=== PATIENT | male | born 1955 | race Caucasian/White ===

== ENCOUNTER 2020-01-14 10:44 | Outpatient (REF) | payer MEDICARE, MEDICAID, SELFPAY ==
--- NOTE | 2020-01-14 10:53 | US_ITS ---
EXAMINATION: NONINVASIVE ASSESSMENT OF THE ARTERIES OF BOTH LOWER EXTREMITIES WITH PVR EXAM AND BILATERAL LOWER EXTREMITY DUPLEX CLINICAL INFORMATION: Bilateral lower extremity arterial insufficiency and atherosclerosis. TECHNIQUE: Ankle pulse volume recordings, ankle pressure measurements and ankle brachial indices were obtained of the lower extremity arterial system bilaterally. Additionally, duplex Doppler techniques were used with wave form analysis and measurement of velocities in the common femoral, profunda femoral, superficial femoral, popliteal and tibial arteries. The study was performed only at rest. COMPARISON: CTA runoff on 12/08/2019. FINDINGS: ANKLE-BRACHIAL INDEX: Right: 1.06. Left: 1.15. (Likely elevated due to vessel noncompressibility.) ANKLE PRESSURES: Right: PT 173, DP 184. Left: PT 200, DP 200. PVR WAVEFORM: Right: normal. Left: normal. DIRECT DUPLEX DOPPLER FINDINGS: RIGHT LEG: Common femoral artery: 118 cm/s, diastolic flow reversal: Yes. Profunda femoris artery: 119 cm/s, diastolic flow reversal: Yes. Superficial femoral artery (proximal): 116 cm/s, diastolic flow reversal: Yes. Superficial femoral artery (mid): 168 cm/s, diastolic flow reversal: Yes. Superficial femoral artery (distal): 101 cm/s, diastolic flow reversal: Yes. Popliteal artery: 35 cm/s, diastolic flow reversal: Yes. Posterior tibial artery: 45cm/s, diastolic flow reversal: Yes. LEFT LEG: Common femoral artery: 170 cm/s, diastolic flow reversal: Yes. Profunda femoris artery: 79 cm/s, diastolic flow reversal: Yes. Superficial femoral artery (proximal): 109 cm/s, diastolic flow reversal: Yes. Superficial femoral artery (mid): 120 cm/s, diastolic flow reversal: Yes. Superficial femoral artery (distal): 92 cm/s, diastolic flow reversal: Yes. Popliteal artery: 34 cm/s, diastolic flow reversal: Yes. Posterior tibial artery: 77cm/s, diastolic flow reversal: Yes. Atherosclerotic plaque is seen throughout the bilateral lower extremity arteries. IMPRESSION: Right leg: GIFTY 1.06. Evidence of mild hemodynamically significant stenosis involving the mid right superficial femoral artery by duplex criteria. Left leg: GIFTY 1.15, however likely artificially elevated due to vessel noncompressibility. Focally elevated velocity within the left common femoral artery consistent with mild hemodynamically significant stenosis. Multiphasic waveforms demonstrated throughout the remainder of the left lower extremity. GIFTY Reference: - >0.97-1.25 = normal - no significant arterial disease. - 0.75-0.96 = mild peripheral arterial disease. - 0.5-0.74 = moderate peripheral arterial disease. - <0.50 = severe peripheral arterial disease.
== END 2020-01-14 10:45 | disposition home or self-care (01) ==
LOC: HO.US 10:44
PROVIDERS: Visit Provider Surgery Vascular Surgery
DX: I73.9 Peripheral vascular disease, unspecified (principal)
CPT/HCPCS: 93923; 93925

== ENCOUNTER 2020-02-03 10:24 | Outpatient (REF) | payer MEDICARE, MEDICAID, SELFPAY | END 2020-02-03 10:25 | disposition home or self-care (01) | LOC: HO.LAB 10:24 | PROVIDERS: Visit Provider Internal Medicine | DX: Z20.828 Contact with and (suspected) exposure to other viral communicable diseases (principal) | CPT/HCPCS: 87635 ==

== ENCOUNTER → 2020-03-11 13:00 | Outpatient (BNVA) | payer MEDICARE, MEDICAID, SELFPAY | PROVIDERS: PCP Nurse Practitioner Family; Visit Provider Surgery Vascular Surgery | DX: I73.9 Peripheral vascular disease, unspecified (principal) | CPT/HCPCS: 99212 ==

== ENCOUNTER → 2021-01-04 09:17 | Outpatient (REF) | payer MEDICARE, MEDICAID, SELFPAY ==
--- NOTE | ~2021-01-04 | NM_ITS ---
Myocardial perfusion study Indication: Atherosclerotic heart disease to evaluate for myocardial ischemia Technique: The patient was brought in for a Lexiscan perfusion study on 01/04/2021. Patient performed low-level exercise and was injected 0.4 mg of Lexiscan intravenously. Within a minute of injection, 25 mCi of sestamibi was given intravenously. Images were obtained using the SPECT gamma camera interlaced with the gating device. Images were obtained in supine position. Resting perfusion study was performed on 01/06/2021. Patient was administered 25 mCi of sestamibi intravenously at rest. Images were then obtained in supine position. Images obtained with and without CT attenuation. Total DLP 80 mGy-cm. Images were processed with the software and compared side to side in short axis, horizontal long axis and vertical long axis views. Findings: Both stress and rest as well as attenuated and is suboptimal due to intense subdiaphragmatic uptake interfering with inferior wall uptake. The stress perfusion study showed nonattenuated images show large area of absent uptake in the basal and mid inferior wall with severely reduced uptake in the inferoapical and apical wall of the LV myocardium is also absent uptake in the inferolateral wall of the LV myocardium lateral wall of the LV myocardium and moderately to severely reduced uptake in the inferolateral wall of the LV myocardium. Anterior wall is normally perfused. There is also mildly reduced uptake septum of the LV myocardium. Attenuated corrected images are suboptimal. The gated study shows reduced LV systolic function with calculated LVEF of 30%. LV cavity is moderately dilated size. The gated study shows absent wall thickening and contraction of inferior and inferolateral wall as well as reduced contractility anterolateral wall segments. Resting study shows improved uptake in the lateral and inferolateral wall of the LV myocardium. Absent uptake in the inferior and inferolateral wall. Gating at rest reveals inferior and inferolateral wall motion abnormality with ejection fraction at 37%. The findings are consistent with large area of possible infarct of inferior and inferolateral wall with nontransmural infarct of the septal wall without ischemia. There is moderate to large area of the LV as well as inferolateral wall of the LV myocardium. NM/NM zeb perf SPECT rest & str Impression: 1. Myocardial perfusion imaging study shows inferior and inferolateral transmural infarct. Lateral and anterolateral ischemia 2. Gated LVEF is 30% with stress and 37% with stress 3. Transient ischemic dilatation present EKG is nondiagnostic for ischemia
--- NOTE | 2021-01-04 09:30 | CA_ITS ---
Acquisition Time: 2021-01-04 09:30:47 Total Exercise Time: 00:02:00 Test Indications: CP Medications: SEE CHART Protocol: LEXISCAN Max HR: 089 BPM 57% of Pred: 155 BPM Max BP: 132/084 mmHG Max Work Load: 1.0 METS Pharmacological stress test with Lexiscan injection, while sitting and kicking his legs, without anginal symptoms, with isolated PACs and PVCs, with normotensive response to injection, with nondiagnostic EKG for ischemia. In recovery he reported lightheadedness that was treated with Aminophylline 75mg IVP to reverse Lexiscan with resolution of symptom. Nuclear images pending. Test reviewed with Dr Mancini. Referred By: Brian Colby Overread By: JUICE PARADA
== END ==
LOC: HO.CARD 09:17
PROVIDERS: Visit Provider Internal Medicine Cardiovascular Disease
DX: I25.10 Atherosclerotic heart disease of native coronary artery without angina pectoris (principal)
CPT/HCPCS: 78452; 93017; A9500; J0280; J2785

== ENCOUNTER 2021-10-26 10:42 | Emergency (ER) | payer MEDICARE, MEDICAID, SELFPAY | END 2021-10-26 13:45 | disposition left against medical advice (07) | PROVIDERS: Emergency Provider Emergency Medicine; PCP Nurse Practitioner Family | DX: R79.9 Abnormal finding of blood chemistry, unspecified (principal) ==

== ENCOUNTER 2021-10-26 20:49 | Inpatient (IN) | payer OTHER, MEDICAID, SELFPAY ==
--- NOTE | ~2021-10-26 | CT_ITS ---
EXAMINATION: CT ABDOMEN AND PELVIS WITHOUT CONTRAST CLINICAL INFORMATION: Evaluate for retroperitoneal hematoma. COMPARISON: CT A abdomen 12/08/2019 TECHNIQUE: Multidetector volumetric imaging was performed from the superior aspect of the liver through the pubic symphysis. Sagittal and coronal reformatted images were obtained on the technologist's workstation. This CT examination was performed using dose optimization techniques as appropriate, variously including the following: *Automated exposure control *Adjustment of mA and/or kV according to patient size (this includes techniques or standardized protocols for targeted exams where dose is matched to indication/reason for exam; i.e. extremities or head) *Use of iterative reconstruction technique DLP: 412 mGy-cm FINDINGS: LUNG BASES: There is dependent bibasilar atelectasis. The heart size is normal. There are coronary artery calcifications present. LIVER, GALLBLADDER, AND BILIARY TREE: The liver is normal in size, shape, and attenuation. No focal hepatic lesion or biliary ductal dilatation is present. The gallbladder has been surgically removed. PANCREAS: Unremarkable. SPLEEN: The spleen is unremarkable except for punctate calcification.. ADRENAL GLANDS: Unremarkable. KIDNEYS AND URETERS: The kidneys are normal in size, shape, and attenuation. No hydronephrosis, hydroureter, or calculi seen. There is mild bilateral perinephric stranding. There are bilateral vascular calcifications. No retroperitoneal mass or adenopathy or hematoma seen. BLADDER: There is mild bladder distention secondary to prostate enlargement encroaching onto the base of the bladder. GASTROINTESTINAL TRACT: There is diffuse colonic diverticulosis with scattered stool and gas without distention or diverticulitis. The small bowel loops are normal caliber. Appendix is not visualized. No free air or free fluid seen. ABDOMINAL WALL: No significant hernia is appreciated. LYMPH NODES: Normal. VASCULAR: There are extensive atherosclerotic calcification of abdominal aorta and common iliac arteries without aneurysmal dilatation. PELVIC VISCERA: The prostate gland is enlarged with peripheral and central calcification. No abnormal pelvic or inguinal lymph nodes seen.. OSSEOUS STRUCTURES: There are degenerative disc changes with vacuum disc phenomena and spondylosis L4-L5 and L5/S1 disc levels. No aggressive lytic or sclerotic process seen. Mildly indistinct changes T10-T11 and T11-T12 disc levels with ventral spondylosis. CT/CT abdomen pelvis wo con IMPRESSION: No retroperitoneal or inguinal hematoma. Diffuse colonic diverticulosis without diverticulitis. Previous cholecystectomy and bilateral perinephric stranding but no radiopaque renal calculi or hydronephrosis. Mild prostate enlargement with extension into the base of bladder and mild bladder distention. Fleischner guidelines were followed.
[2021-10-26 21:24] VITALS: BP 119/72; PULSE 63; RESP 18; TEMP 36.6; O2SAT 100; BMI 23.0
--- NOTE | 2021-10-26 21:28 | ECG_ITS ---
Test Reason : DYSPNEA Blood Pressure : / mmHG Vent. Rate : 062 BPM Atrial Rate : 062 BPM P-R Int : 168 ms QRS Dur : 122 ms QT Int : 410 ms P-R-T Axes : 056 -11 -80 degrees QTc Int : 416 ms Normal sinus rhythm Left ventricular hypertrophy with QRS widening and repolarization abnormality ( Abdi product ) Inferior infarct (cited on or before 30-JUL-2007) Abnormal ECG When compared with ECG of 16-MAY-2018 14:43, QT has shortened Referred By: Generic ED Physician Electronically Signed By:Brien Charles
[2021-10-26 21:45] LABS: Eosinophils Absolute Auto 0.1 X10*3/uL (0.0-0.4); Imm Gran Abs Auto 0.01 X10*3/uL (0.00-0.03); Imm Gran Pct Auto 0.2 % (0.0-0.4); MANUAL DIFF FLAG SCAN; SCAN SMEAR FLAG 1
[2021-10-26 21:47] LABS: Basophils Absolute Auto 0.1 X10*3/uL (0.0-0.2); Basophils Percent Auto 1.2 % (0-2); Eosinophils Percent Auto 2.5 % (0-4); Hematocrit 21.2 % (42.0-52.0); Lymphocytes Percent Auto 38.2 % (20-40); Mean Corpuscular HGB Conc 26.9 g/dl (31.0-36.0); Mean Corpuscular Hemoglobin 17.1 pg (27.0-33.0); Monocytes Absolute Auto 0.8 X10*3/uL (0.1-1.2); Monocytes Percent Auto 14.6 % (2-11); Neutrophils Absolute Auto 2.3 x10*3/uL (2.0-8.3); Neutrophils Percent Auto 43.3 % (45-73); PLT CLUMP 1; Red Blood Count 3.34 X10*6/uL (4.60-5.80)
[2021-10-26 21:48] LABS: Mean Corpuscular Volume 63.5 fL (80.0-98.0); PLT ABN DIST 1
[2021-10-26 21:49] LABS: White Blood Count 5.2 X10*3/uL (4.8-10.8)
[2021-10-26 21:52] LABS: Hemoglobin 5.7 g/dl (14.0-18.0)
[2021-10-26 21:58] VITALS: BP 127/60; PULSE 68; RESP 16; O2SAT 100
[2021-10-26 22:04] LABS: SLIDE REVIEW VERIFIED
[2021-10-26 22:08] LABS: Alanine Aminotransferase 11 U/L (0-40); Albumin Level 4.1 g/dL (3.5-5.0); Alkaline Phosphatase 72 U/L (39-117); Anion Gap 9 (12-20); Aspartate Amino Transferase 18 U/L (5-37); Bilirubin Total 0.5 mg/dL (0.0-1.0); Blood Urea Nitrogen 10 mg/dL (9-16); Calcium 8.7 mg/dL (8.4-10.2); Carbon Dioxide 26 mmol/L (22-29); Chloride 104 mmol/L (96-108); Creatinine Clr Calc Pharmacy 72.1; Estimated Glomerular Filt Rate > 60; Glucose Random 103 mg/dL (60-115); Potassium 3.9 mmol/L (3.3-5.1); Sodium 135 mmol/L (135-145); Total Protein 6.3 g/dL (6.5-8.0); Troponin-I High Sensitivity 8.9 ng/L (<3.5-35.0)
--- NOTE | 2021-10-26 22:21 | ED.RECABL ---
HPI - Recheck/Abnormal Lab/Rx General Chief Complaint: Recheck/Abnormal Lab/Rx Stated Complaint: low hemoglobin? Time Seen by Provider: 10/26/21 22:08 Source: patient Mode of arrival: ambulatory Limitations: no limitations History of Present Illness HPI narrative: Patient comes to the emergency room complaining fatigue, shortness of breath, exercise intolerance for about a month. Patient states that he has had 3 heart attacks in the past, he was supposed to go to a cardiac catheterization, when he did his blood work for the workup, he was told that his hemoglobin is low and needed to come to the hospital. Patient denies any chest pain or shortness of breath. Patient denies hematuria or black stool. Patient takes clopidogrel and aspirin Related Data Home Medications Medication Instructions Recorded Confirmed No Known Home Meds 03/11/20 03/11/20 Allergies Allergy/AdvReac Type Severity Reaction Status Date / Time No Known Allergies Allergy Unverified 12/25/19 17:38 [No Known Allergies*] Review of Systems Review of Systems: Constitutional : No Weight loss, No Fever, No Chills, No Night Sweats, complain of chronic fatigue ENT/Mouth : No Hearing loss, No Ear Pain, No Nasal Congestion, No Sinus Pain, No Hoarseness, No sore throat, No Rhinorrhea, No Swallowing Difficulty Eyes: No Eye Pain, No Swelling, No Redness, No Foreign Body, No Discharge, No Vision Changes Cardiovascular : No Chest Pain, complaining of shortness of breath with exertion, orthopnea or palpitations Respiratory : No Cough, No Sputum, No Wheezing, No Smoke Exposure, No Dyspnea Gastrointestinal : No Nausea, No Vomiting, No Diarrhea, No Constipation, No abdominal Pain, No Hematochezia, No Melena Genitourinary : no irregular bleeding, No Dysuria, No Urinary Frequency, No Hematuria, No Urinary Incontinence, No Urgency, No Flank Pain, No Urinary Flow Changes, No Hesitancy Musculoskeletal : No joint pain, No Myalgias, No Joint Swelling Skin : No Skin Lesions, No rash Neuro : No Weakness, No Numbness, No Paresthesias, No Loss of Consciousness, No Dizziness, No Headache Psych : No Anxiety/Panic, No Depression, No SI/HI/AH/VH, No Social Issues, Heme/Lymph: No Bruising, No Bleeding,No Lymphadenopathy Endocrine : No Polyuria, No Polydipsia, No Temperature Intolerance PMF Past Medical History Medical History (Updated 10/26/21 @ 23:55 by Breanne Astorga MD) Coronary artery disease Hypertension Hypothyroidism NSTEMI (non-ST elevated myocardial infarction) Oropharyngeal cancer Surgical History H/O heart surgery History of hernia repair Hx laparoscopic cholecystectomy Patient on combined chemotherapy and radiation Family History Family History Father No problems noted. Mother No problems noted. Daughter No problems noted. Son No problems noted. Son No problems noted. Brother No problems noted. Sister No problems noted. Sister No problems noted. Son No problems noted. Social History Social History Cigarettes Per Day: 6 Advance Directives: No Physical Exam Vital Signs: Vital Signs: Last Vital Signs Temp 97.6 F 10/26/21 23:46 Pulse 68 10/26/21 23:46 Resp 16 10/26/21 23:46 BP 114/54 L 10/26/21 23:46 Pulse Ox 97 10/26/21 23:46 O2 Del Method 10/26/21 23:46 BMI result Body Mass Index 23.0 Const: Other: Appearance: Alert. Oriented X3. No acute distress. Eyes: Pupils equal, round and reactive to light. ENT: Pharynx normal. Missing half of his tongue Neck: Normal inspection. Neck supple. No lymph nodes noted. No crepitus CVS: Normal heart rate and rhythm. Pulses normal. Normal S1 and S2 Respiratory: No respiratory distress. Breath sounds normal. No Wheezing. No rales Abdomen: Soft and nontender. No rigidity. No distention. Skin: Skin warm and dry. Diffusely pale Extremities: No lower extremity edema. No Lacerations. No Rash Neuro: Oriented X 3. No motor deficit. No sensory deficit. Moving all extremities. No slurred speech. CN 2 through 12 grossly intact Psych: calm, cooperative, normal affect Course Course Course Narrative: I discussed with the patient that his hemoglobin is low, he will likely need 3 units of blood. I discussed the benefits versus risks of blood transfusion, patient and his are agreeable to the blood transfusion. Patient will be receiving 3 units of blood. Guiac stool negative. MDM - Recheck/Abnormal Lab/Rx Lab Data Result diagrams: 10/26/21 21:39 10/26/21 21:39 Labs: Lab Results 10/26/21 10/26/21 10/26/21 Range/Units 21:39 21:39 21:39 WBC 5.2 (4.8-10.8) X10*3/uL RBC 3.34 L (4.60-5.80) X10*6/uL Hgb 5.7 L* (14.0-18.0) g/dl Hct 21.2 L (42.0-52.0) % MCV 63.5 L (80.0-98.0) fL MCH 17.1 L (27.0-33.0) pg MCHC 26.9 L (31.0-36.0) g/dl RDW 22.0 H (11.0-16.0) % Plt Count DOCUMENT CONTROL CLERK MPV DOCUMENT CONTROL CLERK Immature Gran % (Auto) 0.2 (0.0-0.4) % Neut % (Auto) 43.3 L (45-73) % Lymph % (Auto) 38.2 (20-40) % [place] % (Auto) 14.6 H (2-11) % Eos % (Auto) 2.5 (0-4) % Baso % (Auto) 1.2 (0-2) % Lymph # (Auto) 2.0 (1.2-4.9) X10*3/uL [place] # (Auto) 0.8 (0.1-1.2) X10*3/uL Eos # (Auto) 0.1 (0.0-0.4) X10*3/uL Baso # (Auto) 0.1 (0.0-0.2) X10*3/uL Abs Immat Gran (auto) 0.01 (0.00-0.03) X10*3/uL Absolute Neuts (auto) 2.3 (2.0-8.3) x10*3/uL Absolute Nucleated RBC 0.000 (0.0-0.012) X10*3/uL Nucleated RBC % (auto) 0.0 (0.0-0.2) /100WBC Smear Tech's Comments VERIFIED Sodium 135 (135-145) mmol/L Potassium 3.9 (3.3-5.1) mmol/L Chloride 104 (96-108) mmol/L Carbon Dioxide 26 (22-29) mmol/L Anion Gap 9 L (12-20) BUN 10 (9-16) mg/dL Creatinine 0.81 (0.5-1.4) mg/dL Estim Creat Clear Calc 72.1 Estimated GFR > 60 Random Glucose 103 (60-115) mg/dL Calcium 8.7 (8.4-10.2) mg/dL Total Bilirubin 0.5 (0.0-1.0) mg/dL AST 18 (5-37) U/L ALT 11 (0-40) U/L Alkaline Phosphatase 72 (39-117) U/L Troponin I High Sens 8.9 (<3.5-35.0) ng/L Total Protein 6.3 L (6.5-8.0) g/dL Albumin 4.1 (3.5-5.0) g/dL Stool Occult Blood (NEGATIVE) COVID-19 (TERI) (Negative) COVID-19 Clin Com Blood Type Antibody Screen Crossmatch 10/26/21 10/26/21 10/26/21 Range/Units 22:25 22:25 22:44 WBC (4.8-10.8) X10*3/uL RBC (4.60-5.80) X10*6/uL Hgb (14.0-18.0) g/dl Hct (42.0-52.0) % MCV (80.0-98.0) fL MCH (27.0-33.0) pg MCHC (31.0-36.0) g/dl RDW (11.0-16.0) % Plt Count MPV Immature Gran % (Auto) (0.0-0.4) % Neut % (Auto) (45-73) % Lymph % (Auto) (20-40) % [place] % (Auto) (2-11) % Eos % (Auto) (0-4) % Baso % (Auto) (0-2) % Lymph # (Auto) (1.2-4.9) X10*3/uL [place] # (Auto) (0.1-1.2) X10*3/uL Eos # (Auto) (0.0-0.4) X10*3/uL Baso # (Auto) (0.0-0.2) X10*3/uL Abs Immat Gran (auto) (0.00-0.03) X10*3/uL Absolute Neuts (auto) (2.0-8.3) x10*3/uL Absolute Nucleated RBC (0.0-0.012) X10*3/uL Nucleated RBC % (auto) (0.0-0.2) /100WBC Smear Tech's Comments Sodium (135-145) mmol/L Potassium (3.3-5.1) mmol/L Chloride (96-108) mmol/L Carbon Dioxide (22-29) mmol/L Anion Gap (12-20) BUN (9-16) mg/dL Creatinine (0.5-1.4) mg/dL Estim Creat Clear Calc Estimated GFR Random Glucose (60-115) mg/dL Calcium (8.4-10.2) mg/dL Total Bilirubin (0.0-1.0) mg/dL AST (5-37) U/L ALT (0-40) U/L Alkaline Phosphatase (39-117) U/L Troponin I High Sens (<3.5-35.0) ng/L Total Protein (6.5-8.0) g/dL Albumin (3.5-5.0) g/dL Stool Occult Blood NEGATIVE (NEGATIVE) COVID-19 (TERI) Negative (Negative) COVID-19 Clin Com See Note Blood Type O Negative Antibody Screen NEGATIVE Crossmatch See Detail Critical Care Time Critical Care Time Critical Care Time: Yes Total Critical Care Time: 45 Attestation: I have personally provided critical care time. Time includes review of lab data, radiology results, discussion with consultants, and monitoring for potential decompensation. Intervention performed as documented. Discharge Plan Discharge Clinical Impression: Anemia Patient Disposition: Admitted As Inpatient
[2021-10-26 22:34] LABS: OBS1 NEGATIVE (NEGATIVE)
[2021-10-26 22:35] LABS: OBS Int Ctl Valid YES
[2021-10-26 22:54] LABS: COVID-19 Test Negative (Negative); IDNOW Serial# 55D5AD1C
[2021-10-26 23:46] VITALS: BP 114/54; PULSE 68; RESP 16; TEMP 36.4; O2SAT 97
[2021-10-27] VITALS (8 sets, daily range): BP systolic 114–159; BP diastolic 54–90; PULSE 66–81; RESP 12–20; TEMP 36.6–37.2; O2SAT 98
[2021-10-27 00:36] LABS: Immature Retic Fraction 19.9 % (2.3-13.4); Retic HGB Equivalent 17.7 pg (30.0-35.0); Reticulocyte Percent 1.3 % (0.5-1.8); Reticulocytes Absolute 0.044 X10*6/uL (0.026-0.095)
[2021-10-27] MEDS: Nicotine 21 MG PATCH.TD24 TRANSDERMA (00:47)
[2021-10-27 00:58] LABS: Iron 15 mcg/dL (45-160); Percent Iron Saturation 3 % (15-50); Total Iron Binding Capacity 441 mcg/dL (228-428); Unsaturated Iron Binding 426 ug/dL
[2021-10-27 01:19] LABS: Ferritin 5 ng/mL (20-250)
[2021-10-27 01:30] LABS: Vitamin B12 420 pg/mL (200-900)
--- NOTE | 2021-10-27 02:05 | P.HPHOSP_ITS ---
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 Patient reports that for past 1 month he has been having shortness of breath and dyspnea on exertion. Denies any chest pain or palpitations. Reports he feel dizzy or lightheaded. Denies any falls or trauma. Denies any numbness tingling or focal weakness. Patient denies any blood in the stool. Denies any nausea vomiting. Mentioned that he has been following with his sweatband shaper and has plans for outpatient elective cardiac catheterization. But on his routine blood work he was noted to have lobe hemoglobin subsequently asked him to go to the ER for further evaluation. Patient denies any fever chills cough. Denies any GI symptoms. Review of all other systems is negative except mentioned above ER course: Per ER team patient's exam was benign; stool guaiac was negative; hemoglobin noted to be 5.7. Patient being transfused 3 units of blood. Admitted to the hospital for further management. [facility] Medical History (Updated 10/27/21 @ 10:55 by Brien Charles MD) Coronary artery disease Hypertension Hypothyroidism NSTEMI (non-ST elevated myocardial infarction) Oropharyngeal cancer Family History Father No problems noted. Mother No problems noted. Daughter No problems noted. Son No problems noted. Son No problems noted. Brother No problems noted. Sister No problems noted. Sister No problems noted. Son No problems noted. Surgical History H/O heart surgery History of hernia repair Hx laparoscopic cholecystectomy Patient on combined chemotherapy and radiation Social History Alcohol intake: current Patient Tobacco Use Status: Tobacco use Unknown Cigarettes Per Day: 6 Meds Allergies Allergy/AdvReac Type Severity Reaction Status Date / Time No Known Allergies Allergy Unverified 12/25/19 17:38 [No Known Allergies*] Active Medications: Current Medications Acetaminophen (Acetaminophen 325 Mg Tablet) 650 mg PO Q6H PRN PRN Reason: Pain, Mild (Pain Scale 1-3) Melatonin (Melatonin 3 Mg Tablet) 6 mg PO BEDTIME PRN PRN Reason: Insomnia Senna (Sennosides 8.6 Mg Tablet) 17.2 mg PO BEDTIME PRN PRN Reason: Constipation Sodium Chloride (0.9 % Sodium Chloride Flush 3 Ml Syringe) 3 ml IVFLUSH QSHIFT FABI Last Admin: 10/27/21 00:34 Dose: Not Given Home Medications Medication Instructions Recorded Confirmed Last Taken Type aspirin 81 mg tablet,delayed 1 tab PO DAILY 10/27/21 10/27/21 Unknown History release atorvastatin 40 mg tablet 1 tab PO DAILY 10/27/21 10/27/21 Unknown History carvedilol 3.125 mg tablet 1 tab PO BID 10/27/21 10/27/21 Unknown History clopidogrel 75 mg tablet 1 tab PO QAM 10/27/21 10/27/21 Unknown History furosemide 20 mg tablet 1 tab PO QAM 10/27/21 10/27/21 Unknown History isosorbide mononitrate 30 mg 1 tab PO QAM 10/27/21 10/27/21 Unknown History tablet,extended release 24 hr levothyroxine 75 mcg tablet 1 tab PO DAILY 10/27/21 10/27/21 Unknown History lisinopril 10 mg tablet 1 tab PO DAILY 10/27/21 10/27/21 Unknown History oxycodone 15 mg tablet 1 tab PO Q6H PRN pain 10/27/21 10/27/21 Unknown History Physical Exam Vital Signs and Narrative: Vital Signs: Last Vital Signs Temp 98.2 F 10/27/21 00:38 Pulse 81 10/27/21 00:38 Resp 12 10/27/21 00:38 BP 126/75 10/27/21 00:38 Pulse Ox 97 10/26/21 23:46 O2 Del Method 10/26/21 23:46 BMI result Body Mass Index 23.0 Gen: Appears be in no acute distress HEENT: NCAT, Moist mucosa. Pulmonary: Vesicular breath sounds, fair air entry CVS: Normal S1-S2 Abdomen: BS+, Soft, Nontender Extremities: Warm well perfused Neuro: Alert and awake. Results Labs CBC and Chem 7: 10/27/21 03:33 10/27/21 03:33 Labs: Laboratory Results - last 24 hr 10/26/21 10/26/21 10/26/21 21:39 21:39 21:39 MCV 63.5 L MCH 17.1 L MCHC 26.9 L RDW 22.0 H Plt Count RV REPAIR TECHNICIAN MPV RV REPAIR TECHNICIAN Immature Gran % (Auto) 0.2 Neut % (Auto) 43.3 L Lymph % (Auto) 38.2 [place] % (Auto) 14.6 H Eos % (Auto) 2.5 Baso % (Auto) 1.2 Lymph # (Auto) 2.0 [place] # (Auto) 0.8 Eos # (Auto) 0.1 Baso # (Auto) 0.1 Abs Immat Gran (auto) 0.01 Absolute Neuts (auto) 2.3 Absolute Nucleated RBC 0.000 Nucleated RBC % (auto) 0.0 Smear Tech's Comments VERIFIED Absolute Retic Percent Retic Immature Retic Fraction Retic Hgb Equivalent Anion Gap 9 L Estim Creat Clear Calc 72.1 Estimated GFR > 60 Random Glucose 103 Calcium 8.7 Iron TIBC % Saturation Unsat Iron Binding Ferritin Total Bilirubin 0.5 AST 18 ALT 11 Alkaline Phosphatase 72 Troponin I High Sens 8.9 Total Protein 6.3 L Albumin 4.1 Vitamin B12 Folate Stool Occult Blood COVID-19 (TERI) COVID-19 Clin Com Blood Type Antibody Screen Crossmatch 10/26/21 10/26/21 10/26/21 22:25 22:25 22:44 MCV MCH MCHC RDW Plt Count MPV Immature Gran % (Auto) Neut % (Auto) Lymph % (Auto) [place] % (Auto) Eos % (Auto) Baso % (Auto) Lymph # (Auto) [place] # (Auto) Eos # (Auto) Baso # (Auto) Abs Immat Gran (auto) Absolute Neuts (auto) Absolute Nucleated RBC Nucleated RBC % (auto) Smear Tech's Comments Absolute Retic Percent Retic Immature Retic Fraction Retic Hgb Equivalent Anion Gap Estim Creat Clear Calc Estimated GFR Random Glucose Calcium Iron TIBC % Saturation Unsat Iron Binding Ferritin Total Bilirubin AST ALT Alkaline Phosphatase Troponin I High Sens Total Protein Albumin Vitamin B12 Folate Stool Occult Blood NEGATIVE COVID-19 (TERI) Negative COVID-19 Clin Com See Note Blood Type O Negative Antibody Screen NEGATIVE Crossmatch See Detail 10/27/21 10/27/21 10/27/21 00:11 00:11 00:11 MCV MCH MCHC RDW Plt Count MPV Immature Gran % (Auto) Neut % (Auto) Lymph % (Auto) [place] % (Auto) Eos % (Auto) Baso % (Auto) Lymph # (Auto) [place] # (Auto) Eos # (Auto) Baso # (Auto) Abs Immat Gran (auto) Absolute Neuts (auto) Absolute Nucleated RBC Nucleated RBC % (auto) Smear Tech's Comments Absolute Retic 0.044 Percent Retic 1.3 Immature Retic Fraction 19.9 H Retic Hgb Equivalent 17.7 L Anion Gap Estim Creat Clear Calc Estimated GFR Random Glucose Calcium Iron 15 L TIBC 441 H % Saturation 3 L Unsat Iron Binding 426 Ferritin 5 L Total Bilirubin AST ALT Alkaline Phosphatase Troponin I High Sens Total Protein Albumin Vitamin B12 420 Folate 10.0 Stool Occult Blood COVID-19 (TERI) COVID-19 Clin Com Blood Type Antibody Screen Crossmatch Assessment and Plan (1) Anemia: Status: Acute Plan 66-year-old male with a past medical history of hypertension, hyperlipidemia, CAD, history of NSTEMI, 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 Noted to have anemia. Admitted for further management. Anemia: Patient's hemoglobin noted to be 5.7 on presentation. Patient has prior hemoglobin was 13.7 in November 2019. Patient denies any signs of bleeding Stool guaiac was negative Noted to be microcytic. Will obtain iron panel, folate, B12. Patient being transfused 2 units of blood. Hematology-Oncology follow-up Will also obtain CT abdomen to rule out any retroperitoneal hemorrhage. Shortness of breath/dyspnea on exertion: Patient denies any chest pain. EKG nonischemic. Likely in the setting of anemia. Patient follows with Cardiology, planned for elective cardiac catheterization. History of hypertension/hyperlipidemia/CAD: Continue home aspirin, Plavix, statin, Imdur, Lasix, carvedilol. History of hypothyroidism: Continue home levothyroxine DVT prophylaxis: SCD boots Code status: Full code Quality Stroke Does the patient have a stroke diagnosis?: No VTE Prior VTE?: No VTE Risk Level:: Medical - moderate - high VTE Device Contraindication: N/A - Device Ordered VTE Drug Contraindication: Treatment Not Indicated
[2021-10-27 04:08] LABS: MANUAL DIFF FLAG NO
[2021-10-27 04:10] LABS: Basophils Absolute Auto 0.1 X10*3/uL (0.0-0.2); Basophils Percent Auto 1.1 % (0-2); Eosinophils Absolute Auto 0.1 X10*3/uL (0.0-0.4); Eosinophils Percent Auto 1.4 % (0-4); Hematocrit 27.2 % (42.0-52.0); Hemoglobin 7.7 g/dl (14.0-18.0); Imm Gran Abs Auto 0.03 X10*3/uL (0.00-0.03); Imm Gran Pct Auto 0.4 % (0.0-0.4); Lymphocytes Absolute Auto 1.3 X10*3/uL (1.2-4.9); Lymphocytes Percent Auto 18.1 % (20-40); Mean Corpuscular HGB Conc 28.3 g/dl (31.0-36.0); Mean Corpuscular Hemoglobin 18.8 pg (27.0-33.0); Mean Corpuscular Volume 66.3 fL (80.0-98.0); Monocytes Absolute Auto 0.7 X10*3/uL (0.1-1.2); Monocytes Percent Auto 10.3 % (2-11); Neutrophils Absolute Auto 4.8 x10*3/uL (2.0-8.3); Neutrophils Percent Auto 68.7 % (45-73); Platelet Count 181 X10*3/uL (160-400); Red Cell Distribution Width 25.3 % (11.0-16.0)
--- NOTE | 2021-10-27 04:16 | PC.NURSE ---
I assumed nursing care of Rock upon his arrival to bed 2. He arrived for evaluation of shortness of breath. Rock has remained alert, oriented x 3, primarily azeri speaking with the ability to understand and speak a small amount of [place]. He makes eye contact with RN and understands how to use call avendano. Respirations are non-labored, RR 16-20, room air sat's are 95% or better and he is able to speak in full sentences without difficulty. He complains of occasional bouts of nausea, no vomiting. He has taken PO fluids without difficulty. he has voided into bedside urinal independently and without difficulty. Stool occult performed by MD Gauri was negative per lab. SR on bedside monitor without ectopy. Rock has been receiving PRBC's due to critically low hemoglobin. He is aware that he is TBADM and is awaiting a bed assignment. We will continue to monitor Rock.
[2021-10-27 04:37] LABS: Anion Gap 9 (12-20); Blood Urea Nitrogen 8 mg/dL (9-16); Calcium 8.6 mg/dL (8.4-10.2); Carbon Dioxide 24 mmol/L (22-29); Chloride 108 mmol/L (96-108); Creatinine Clr Calc Pharmacy 81.2; Estimated Glomerular Filt Rate > 60; Glucose Random 85 mg/dL (60-115); Sodium 137 mmol/L (135-145)
[2021-10-27 04:58] LABS: Appearance Urine CLEAR; Color Urine STRAW; Glucose Urine UA NEG (NEG); Leukocyte Esterase Urine NEG (NEG); Nitrite Urine NEG (NEG); PH 7.5 (5.0-8.0); Urine Blood NEG (NEG); Urine Ketones NEG (NEG); Urine Protein NEG (NEG-TRACE)
--- NOTE | 2021-10-27 07:10 | PHA.MEDREC ---
Pharmacy Consult ? Medication Reconciliation Pharmacy has completed the medication reconciliation. Med rec done by nursing reviewed by pharmacy
[2021-10-27] MEDS: 0.9 % Sodium Chloride Flush 3 ML SYRINGE IVFLUSH (07:56)
--- NOTE | 2021-10-27 10:53 | P.CONCA_ITS ---
History of Present Illness History of Present Illness Date of Service: 10/27/21 Requesting physician: Nitin Ashton Chief complaint: Anemia, abnormal stress test Narrative: 66-year-old gentleman with known history of previous myocardial infarction when he was in [place] many years ago. He is reporting 3 heart attacks in the past. 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 Been experiencing shortness of breath and underwent stress test which showed inferior infarct and lateral and anterolateral ischemia. The stress test was performed in December 2020. He follows up with Dr. Colby. Apparently a cardiac catheterization was being planned he underwent blood workup which showed significant anemia and was advised to come to the hospital. He is denying any black stools, blood in his stool or urine otherwise. He is saying he has been short of breath with exertion. Denying any significant chest discomfort. He has been transfused at this stage. [facility] Past Medical History Medical History (Updated 10/27/21 @ 10:55 by Brien Charles MD) Coronary artery disease Hypertension Hypothyroidism NSTEMI (non-ST elevated myocardial infarction) Oropharyngeal cancer Family History Family History Father No problems noted. Mother No problems noted. Daughter No problems noted. Son No problems noted. Son No problems noted. Brother No problems noted. Sister No problems noted. Sister No problems noted. Son No problems noted. Surgical History Surgical History H/O heart surgery History of hernia repair Hx laparoscopic cholecystectomy Patient on combined chemotherapy and radiation Social History Social History Alcohol intake: current Patient Tobacco Use Status: Tobacco use Unknown Cigarettes Per Day: 6 Use of substances other than those prescribed or required for medical reasons: No Advance Directives: No Meds Allergies Allergy/AdvReac Type Severity Reaction Status Date / Time No Known Allergies Allergy Unverified 12/25/19 17:38 [No Known Allergies*] Active Medications: Current Medications Acetaminophen (Acetaminophen 325 Mg Tablet) 650 mg PO Q6H PRN PRN Reason: Pain, Mild (Pain Scale 1-3) Al Hydroxide/Mg Hydroxide (Magnesium Hydrox/Alum Hydrox 30 Ml Oral.Susp) 30 ml PO Q6H PRN PRN Reason: Dyspepsia Atorvastatin Calcium (Atorvastatin Calcium 40 Mg Tablet) 40 mg PO BEDTIME FABI Carvedilol (Carvedilol 3.125 Mg Tablet) 3.125 mg PO BID FABI; Protocol Furosemide (Furosemide 20 Mg Tablet) 20 mg PO DAILY FABI; Protocol Isosorbide Mononitrate (Isosorbide Mononitrate 30 Mg Tab.Er.24h) 30 mg PO DAILY FABI; Protocol Levothyroxine Sodium (Levothyroxine Sodium 75 Mcg Tablet) 75 mcg PO DAILY@0600 [facility] Melatonin (Melatonin 3 Mg Tablet) 6 mg PO BEDTIME PRN PRN Reason: Insomnia Omeprazole (Omeprazole 20 Mg Capsule.Dr) 20 mg PO BID@0630,1630 [facility] Senna (Sennosides 8.6 Mg Tablet) 17.2 mg PO BEDTIME PRN PRN Reason: Constipation Sodium Chloride (0.9 % Sodium Chloride Flush 3 Ml Syringe) 3 ml IVFLUSH QSHIFT [facility] Last Admin: 10/27/21 07:56 Dose: 3 ml Home Medications Medication Instructions Recorded Confirmed Last Taken Type aspirin 81 mg tablet,delayed 1 tab PO DAILY 10/27/21 10/27/21 Unknown History release atorvastatin 40 mg tablet 1 tab PO DAILY 10/27/21 10/27/21 Unknown History carvedilol 3.125 mg tablet 1 tab PO BID 10/27/21 10/27/21 Unknown History clopidogrel 75 mg tablet 1 tab PO QAM 10/27/21 10/27/21 Unknown History furosemide 20 mg tablet 1 tab PO QAM 10/27/21 10/27/21 Unknown History isosorbide mononitrate 30 mg 1 tab PO QAM 10/27/21 10/27/21 Unknown History tablet,extended release 24 hr levothyroxine 75 mcg tablet 1 tab PO DAILY 10/27/21 10/27/21 Unknown History lisinopril 10 mg tablet 1 tab PO DAILY 10/27/21 10/27/21 Unknown History oxycodone 15 mg tablet 1 tab PO Q6H PRN pain 10/27/21 10/27/21 Unknown History Physical Exam Vital Signs: Vital Signs: Last Vital Signs Temp 98.9 F 10/27/21 06:20 Pulse 66 10/27/21 06:20 Resp 16 10/27/21 06:20 BP 153/88 H 10/27/21 06:20 Pulse Ox 97 10/26/21 23:46 O2 Del Method 10/26/21 23:46 BMI result Body Mass Index 23.0 GENERAL APPEARANCE: in no acute distress, pleasant. NECK: no carotid bruit, no jugular venous distention. SKIN: no suspicious lesions, warm and dry. HEART: Holosystolic murmur at the apex, regular rate and rhythm. LUNGS: clear to auscultation bilaterally. ABDOMEN: soft, nontender. EXTREMITIES: no edema. PERIPHERAL PULSES: equal. NEUROLOGIC: No gross deficits, AAO X 3 Objective Labs and Meds Result diagrams: 10/27/21 03:33 10/27/21 03:33 Lab results: Laboratory Results - last 24 hr 10/26/21 10/26/21 10/26/21 21:39 21:39 21:39 WBC 5.2 RBC 3.34 L Hgb 5.7 L* Hct 21.2 L MCV 63.5 L MCH 17.1 L MCHC 26.9 L RDW 22.0 H Plt Count BMX RIDER MPV BMX RIDER Immature Gran % (Auto) 0.2 Neut % (Auto) 43.3 L Lymph % (Auto) 38.2 [place] % (Auto) 14.6 H Eos % (Auto) 2.5 Baso % (Auto) 1.2 Lymph # (Auto) 2.0 [place] # (Auto) 0.8 Eos # (Auto) 0.1 Baso # (Auto) 0.1 Abs Immat Gran (auto) 0.01 Absolute Neuts (auto) 2.3 Absolute Nucleated RBC 0.000 Nucleated RBC % (auto) 0.0 Smear Tech's Comments VERIFIED Smear Path Review Absolute Retic Percent Retic Immature Retic Fraction Retic Hgb Equivalent Sodium 135 Potassium 3.9 Chloride 104 Carbon Dioxide 26 Anion Gap 9 L BUN 10 Creatinine 0.81 Estim Creat Clear Calc 72.1 Estimated GFR > 60 Random Glucose 103 Calcium 8.7 Iron TIBC % Saturation Unsat Iron Binding Ferritin Total Bilirubin 0.5 AST 18 ALT 11 Alkaline Phosphatase 72 Troponin I High Sens 8.9 Total Protein 6.3 L Albumin 4.1 Vitamin B12 Folate Urine Color Urine Appearance Urine pH Ur Specific [place] Urine Protein Urine Glucose (UA) Urine Ketones Urine Blood Urine Nitrite Ur Leukocyte Esterase Stool Occult Blood COVID-19 (TERI) COVID-19 Clin Com Blood Type Antibody Screen Crossmatch 10/26/21 10/26/21 10/26/21 22:25 22:25 22:44 WBC RBC Hgb Hct MCV MCH MCHC RDW Plt Count MPV Immature Gran % (Auto) Neut % (Auto) Lymph % (Auto) [place] % (Auto) Eos % (Auto) Baso % (Auto) Lymph # (Auto) [place] # (Auto) Eos # (Auto) Baso # (Auto) Abs Immat Gran (auto) Absolute Neuts (auto) Absolute Nucleated RBC Nucleated RBC % (auto) Smear Tech's Comments Smear Path Review Absolute Retic Percent Retic Immature Retic Fraction Retic Hgb Equivalent Sodium Potassium Chloride Carbon Dioxide Anion Gap BUN Creatinine Estim Creat Clear Calc Estimated GFR Random Glucose Calcium Iron TIBC % Saturation Unsat Iron Binding Ferritin Total Bilirubin AST ALT Alkaline Phosphatase Troponin I High Sens Total Protein Albumin Vitamin B12 Folate Urine Color Urine Appearance Urine pH Ur Specific [place] Urine Protein Urine Glucose (UA) Urine Ketones Urine Blood Urine Nitrite Ur Leukocyte Esterase Stool Occult Blood NEGATIVE COVID-19 (TERI) Negative COVID-19 Clin Com See Note Blood Type O Negative Antibody Screen NEGATIVE Crossmatch See Detail 10/27/21 10/27/21 10/27/21 00:11 00:11 00:11 WBC RBC Hgb Hct MCV MCH MCHC RDW Plt Count MPV Immature Gran % (Auto) Neut % (Auto) Lymph % (Auto) [place] % (Auto) Eos % (Auto) Baso % (Auto) Lymph # (Auto) [place] # (Auto) Eos # (Auto) Baso # (Auto) Abs Immat Gran (auto) Absolute Neuts (auto) Absolute Nucleated RBC Nucleated RBC % (auto) Smear Tech's Comments Smear Path Review Absolute Retic 0.044 Percent Retic 1.3 Immature Retic Fraction 19.9 H Retic Hgb Equivalent 17.7 L Sodium Potassium Chloride Carbon Dioxide Anion Gap BUN Creatinine Estim Creat Clear Calc Estimated GFR Random Glucose Calcium Iron 15 L TIBC 441 H % Saturation 3 L Unsat Iron Binding 426 Ferritin 5 L Total Bilirubin AST ALT Alkaline Phosphatase Troponin I High Sens Total Protein Albumin Vitamin B12 420 Folate 10.0 Urine Color Urine Appearance Urine pH Ur Specific [place] Urine Protein Urine Glucose (UA) Urine Ketones Urine Blood Urine Nitrite Ur Leukocyte Esterase Stool Occult Blood COVID-19 (TERI) COVID-19 Clin Com Blood Type Antibody Screen Crossmatch 10/27/21 10/27/21 10/27/21 03:33 03:33 04:53 WBC 7.0 RBC 4.10 L D Hgb 7.7 L D Hct 27.2 L D MCV 66.3 L MCH 18.8 L MCHC 28.3 L RDW 25.3 H Plt Count 181 MPV TNP Immature Gran % (Auto) 0.4 Neut % (Auto) 68.7 Lymph % (Auto) 18.1 L [place] % (Auto) 10.3 Eos % (Auto) 1.4 Baso % (Auto) 1.1 Lymph # (Auto) 1.3 [place] # (Auto) 0.7 Eos # (Auto) 0.1 Baso # (Auto) 0.1 Abs Immat Gran (auto) 0.03 Absolute Neuts (auto) 4.8 Absolute Nucleated RBC 0.000 Nucleated RBC % (auto) 0.0 Smear Tech's Comments Smear Path Review Absolute Retic Percent Retic Immature Retic Fraction Retic Hgb Equivalent Sodium 137 Potassium 4.0 Chloride 108 Carbon Dioxide 24 Anion Gap 9 L BUN 8 L Creatinine 0.72 Estim Creat Clear Calc 81.2 Estimated GFR > 60 Random Glucose 85 Calcium 8.6 Iron TIBC % Saturation Unsat Iron Binding Ferritin Total Bilirubin AST ALT Alkaline Phosphatase Troponin I High Sens Total Protein Albumin Vitamin B12 Folate Urine Color STRAW Urine Appearance CLEAR Urine pH 7.5 Ur Specific [place] 1.010 Urine Protein NEG Urine Glucose (UA) NEG Urine Ketones NEG Urine Blood NEG Urine Nitrite NEG Ur Leukocyte Esterase NEG Stool Occult Blood COVID-19 (TERI) COVID-19 Clin Com Blood Type Antibody Screen Crossmatch Imaging Radiologist's impression: Impressions Abdomen/Pelvis CT 10/27/21 02:59 IMPRESSION: No retroperitoneal or inguinal hematoma. Diffuse colonic diverticulosis without diverticulitis. Previous cholecystectomy and bilateral perinephric stranding but no radiopaque renal calculi or hydronephrosis. Mild prostate enlargement with extension into the base of bladder and mild bladder distention. Fleischner guidelines were followed. Assessment and Plan (1) Coronary artery disease: Status: Acute (2) Anemia: Status: Acute Plan 66-year-old gentleman with known history of coronary disease who is presenting with shortness of breath and anemia. He had blood transfusions with improvement in hemoglobin. He had stress testing performed previously for shortness of breath which has shown inferior infarct and lateral wall ischemia. He was due to get cardiac catheterization. Currently his dyspnea can be from significant anemia. He definitely needs workup for anemia and should have GI involvement. He is intermediate risk for periprocedural complications. He was on aspirin and Plavix and both are currently on hold appropriately. We will get records from [facility]. Thank you for allowing me to participate in the care of your patient. Please feel free to contact me if you have any questions. Procedures Date of Service Date of Service: 10/27/21
[2021-10-27] MEDS: Omeprazole 20 MG CAPSULE.DR PO (11:02)
[2021-10-27] MEDS: Isosorbide Mononitrate 30 MG TAB.ER.24H PO (11:02)
--- NOTE | 2021-10-27 12:30 | PC.NURSE ---
this nurse obtained report from ebefren- pt moved from main ed to room 1, patient a&o, canadian speaking-requesting senior research associate-this nurse did call, no answer as of yet, vitals obtained-vss, desktop engineer applied-nsr, call avendano within reach, will continue to monitor.
--- NOTE | 2021-10-27 12:38 | PC.NURSE ---
perennial house manager obtained, pt family at bedside, pt and family member irate as they feel it is too cold pt wants the doctor to discharge him, the patient was offered warm blankets and they stated thats not going to help and offered to have the room door closed, pt reluctantly eventually took a warm blanket, pt and family member stated we are leaving ama if the doctor wont come see and discharge him this nurse educated the patient and family member what could happen if the patient left ama. will notify the provider.
--- NOTE | 2021-10-27 13:03 | PC.NURSE ---
patient made this nurse take out his iv, provider was tiger texted and was able to get down prior to the patient leaving, patient insistent on leaving. provider stated print out the ama papers and patient can go
--- NOTE | 2021-10-27 13:26 | PM.DS ---
DS: Providers Provider Date of Service: 10/27/21 Date of admission: 10/26/21 23:58 Primary care physician: Unknown Physician Consults: 10/26/21 23:57 Consult to Cardiology Routine Consulting Provider: Brien Charles Reason for consultation: CAD/CHACON 10/27/21 02:10 Consult to Hematology / Oncology Routine Consulting Provider: Kasia Amaya Reason for consultation: anemia 10/27/21 10:24 Consult to Gastroenterology Routine Consulting Provider: Nataly Pelayo Reason for consultation: iron deficiency anemia Has provider been notified: No DS: Diagnosis Discharge Diagnosis (1) Coronary artery disease: Status: Acute (2) Anemia: Status: Acute DS: Summary Hospital Course Hospital Course: History of presenting illness Date of Service: 10/27/21 Chief Complaint: SOB 66-year-old male with a past medical history of hypertension, hyperlipidemia, CAD, history of NSTEMI, 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 Patient reports that for past 1 month he has been having shortness of breath and dyspnea on exertion.? Denies any chest pain or palpitations.? Reports he feel dizzy or lightheaded.? Denies any falls or trauma.? Denies any numbness tingling or focal weakness.? Patient denies any blood in the stool.? Denies any nausea vomiting.? Mentioned that he has been following with his arcade technician and has plans for outpatient elective cardiac catheterization.? But on his routine blood work he was noted to have lobe hemoglobin subsequently asked him to go to the ER for further evaluation.? Patient denies any fever chills cough.? Denies any GI symptoms.? Review of all other systems is negative except mentioned above ER course: Per ER team patient's exam was benign; stool guaiac was negative; hemoglobin noted to be 5.7.? Patient being transfused 3 units of blood.? Admitted to the hospital for further management. Hospital course Symptomatic iron deficiency anemia 66-year-old gentleman admitted to [facility] due to symptoms of shortness of breath associated with lightheadedness and dizziness, denies chest pain or palpitation, patient noted to have significant anemia with hemoglobin of 5.7 and prior hemoglobin of 13.7 and November of 2019 patient denied hematemesis, no melena he did complain of reflux symptoms, patient is on aspirin and Plavix due to history of coronary artery disease his stool guaiac was negative patient received 2 units of packed RBC hemoglobin improved to 7.7 with hematocrit of 27.2, iron studies consistent significant iron deficiency anemia B12 and folate were negative patient was scheduled to be seen by gastroenterology teacher but he refused to stay in the hospital since he was feeling cold explained patient the importance of undergoing endoscopy since need to be continued on dual antiplatelet agent but despite multiple attempts to explain him he decided to leave the hospital against medical advice patient was also seen in consultation by Dr. Charles from Cardiology he felt patient's symptoms are related to anemia and has no active coronary artery disease at this time with no acute ischemic changes on EKG, normal troponin, patient has been instructed to call gastroenterology teacher soon after discharge to make appointment for further testing and to decide when to resume anti-platelet agent, he has been placed on Prilosec and iron supplement, and strongly advised to abstain from smoking and alcohol. History of coronary artery disease/hypertension/hyperlipidemia patient has been continued on all home medication and instructed to follow-up with Dr. Colby. Time Spent with Patient Time attestation: Total time spent providing and/or coordinating discharge services: Discharge coordination time: Greater than 30 minutes Quality: Safe Use of Opioids Does Pt have an Active Cancer Diagnosis on the Problem List?: No Quality: Stroke Does the patient have a stroke diagnosis?: No Physical Exam Vital Signs: Vital Signs: Last Vital Signs Temp 98.1 F 10/27/21 12:29 Pulse 66 10/27/21 12:29 Resp 16 10/27/21 12:29 BP 159/90 H 10/27/21 12:29 Pulse Ox 98 10/27/21 12:29 O2 Del Method 10/27/21 12:29 BMI result Body Mass Index 23.0 Const: Other: General awake alert x3 no acute distress HEENT:? PERRLA,? Moist mucosa. Pulmonary:? Clear to auscultation no respiratory distress CVS:? Normal S1-S2 Abdomen: BS+, Soft, Nontender Extremities:? Warm well perfused Neuro:? Alert and awake. ? DS: Data Data Completed and Pending Labs on day of discharge: Laboratory Results - last 24 hr 10/26/21 10/26/21 10/26/21 21:39 21:39 21:39 WBC 5.2 RBC 3.34 L Hgb 5.7 L* Hct 21.2 L MCV 63.5 L MCH 17.1 L MCHC 26.9 L RDW 22.0 H Plt Count CLOTH TESTER MPV CLOTH TESTER Immature Gran % (Auto) 0.2 Neut % (Auto) 43.3 L Lymph % (Auto) 38.2 [place] % (Auto) 14.6 H Eos % (Auto) 2.5 Baso % (Auto) 1.2 Lymph # (Auto) 2.0 [place] # (Auto) 0.8 Eos # (Auto) 0.1 Baso # (Auto) 0.1 Abs Immat Gran (auto) 0.01 Absolute Neuts (auto) 2.3 Absolute Nucleated RBC 0.000 Nucleated RBC % (auto) 0.0 Smear Tech's Comments VERIFIED Smear Path Review Absolute Retic Percent Retic Immature Retic Fraction Retic Hgb Equivalent Sodium 135 Potassium 3.9 Chloride 104 Carbon Dioxide 26 Anion Gap 9 L BUN 10 Creatinine 0.81 Estim Creat Clear Calc 72.1 Estimated GFR > 60 Random Glucose 103 Calcium 8.7 Iron TIBC % Saturation Unsat Iron Binding Ferritin Total Bilirubin 0.5 AST 18 ALT 11 Alkaline Phosphatase 72 Troponin I High Sens 8.9 Total Protein 6.3 L Albumin 4.1 Vitamin B12 Folate Urine Color Urine Appearance Urine pH Ur Specific Nathalie Urine Protein Urine Glucose (UA) Urine Ketones Urine Blood Urine Nitrite Ur Leukocyte Esterase Stool Occult Blood COVID-19 (TERI) COVID-19 Clin Com Blood Type Antibody Screen Crossmatch 10/26/21 10/26/21 10/26/21 22:25 22:25 22:44 WBC RBC Hgb Hct MCV MCH MCHC RDW Plt Count MPV Immature Gran % (Auto) Neut % (Auto) Lymph % (Auto) [place] % (Auto) Eos % (Auto) Baso % (Auto) Lymph # (Auto) [place] # (Auto) Eos # (Auto) Baso # (Auto) Abs Immat Gran (auto) Absolute Neuts (auto) Absolute Nucleated RBC Nucleated RBC % (auto) Smear Tech's Comments Smear Path Review Absolute Retic Percent Retic Immature Retic Fraction Retic Hgb Equivalent Sodium Potassium Chloride Carbon Dioxide Anion Gap BUN Creatinine Estim Creat Clear Calc Estimated GFR Random Glucose Calcium Iron TIBC % Saturation Unsat Iron Binding Ferritin Total Bilirubin AST ALT Alkaline Phosphatase Troponin I High Sens Total Protein Albumin Vitamin B12 Folate Urine Color Urine Appearance Urine pH Ur Specific [place]ie Urine Protein Urine Glucose (UA) Urine Ketones Urine Blood Urine Nitrite Ur Leukocyte Esterase Stool Occult Blood NEGATIVE COVID-19 (TERI) Negative COVID-19 Clin Com See Note Blood Type O Negative Antibody Screen NEGATIVE Crossmatch See Detail 10/27/21 10/27/21 10/27/21 00:11 00:11 00:11 WBC RBC Hgb Hct MCV MCH MCHC RDW Plt Count MPV Immature Gran % (Auto) Neut % (Auto) Lymph % (Auto) [place] % (Auto) Eos % (Auto) Baso % (Auto) Lymph # (Auto) [place] # (Auto) Eos # (Auto) Baso # (Auto) Abs Immat Gran (auto) Absolute Neuts (auto) Absolute Nucleated RBC Nucleated RBC % (auto) Smear Tech's Comments Smear Path Review Absolute Retic 0.044 Percent Retic 1.3 Immature Retic Fraction 19.9 H Retic Hgb Equivalent 17.7 L Sodium Potassium Chloride Carbon Dioxide Anion Gap BUN Creatinine Estim Creat Clear Calc Estimated GFR Random Glucose Calcium Iron 15 L TIBC 441 H % Saturation 3 L Unsat Iron Binding 426 Ferritin 5 L Total Bilirubin AST ALT Alkaline Phosphatase Troponin I High Sens Total Protein Albumin Vitamin B12 420 Folate 10.0 Urine Color Urine Appearance Urine pH Ur Specific [place] Urine Protein Urine Glucose (UA) Urine Ketones Urine Blood Urine Nitrite Ur Leukocyte Esterase Stool Occult Blood COVID-19 (TERI) COVID-19 Clin Com Blood Type Antibody Screen Crossmatch 10/27/21 10/27/21 10/27/21 03:33 03:33 04:53 WBC 7.0 RBC 4.10 L D Hgb 7.7 L D Hct 27.2 L D MCV 66.3 L MCH 18.8 L MCHC 28.3 L RDW 25.3 H Plt Count 181 MPV TNP Immature Gran % (Auto) 0.4 Neut % (Auto) 68.7 Lymph % (Auto) 18.1 L [place] % (Auto) 10.3 Eos % (Auto) 1.4 Baso % (Auto) 1.1 Lymph # (Auto) 1.3 [place] # (Auto) 0.7 Eos # (Auto) 0.1 Baso # (Auto) 0.1 Abs Immat Gran (auto) 0.03 Absolute Neuts (auto) 4.8 Absolute Nucleated RBC 0.000 Nucleated RBC % (auto) 0.0 Smear Tech's Comments Smear Path Review Absolute Retic Percent Retic Immature Retic Fraction Retic Hgb Equivalent Sodium 137 Potassium 4.0 Chloride 108 Carbon Dioxide 24 Anion Gap 9 L BUN 8 L Creatinine 0.72 Estim Creat Clear Calc 81.2 Estimated GFR > 60 Random Glucose 85 Calcium 8.6 Iron TIBC % Saturation Unsat Iron Binding Ferritin Total Bilirubin AST ALT Alkaline Phosphatase Troponin I High Sens Total Protein Albumin Vitamin B12 Folate Urine Color STRAW Urine Appearance CLEAR Urine pH 7.5 Ur Specific Nathalie 1.010 Urine Protein NEG Urine Glucose (UA) NEG Urine Ketones NEG Urine Blood NEG Urine Nitrite NEG Ur Leukocyte Esterase NEG Stool Occult Blood COVID-19 (TERI) COVID-19 Clin Com Blood Type Antibody Screen Crossmatch Discharge Plan Discharge Patient Disposition: Left Against Medical Advice Discharge Diagnosis: Symptomatic anemia Iron deficiency anemia Coronary artery disease Referrals: Physician,Unknown J [Primary Care Provider] - 1 Week Discharge Medications: New ferrous sulfate 325 mg (65 mg iron) tablet 325 mg PO BID Qty: 60 0RF omeprazole 20 mg capsule,delayed release(DR/EC) 20 mg PO DAILY Qty: 30 0RF Continued atorvastatin 40 mg tablet 1 tab PO DAILY isosorbide mononitrate 30 mg tablet extended release 24 hr 1 tab PO QAM carvedilol 3.125 mg tablet 1 tab PO BID oxycodone 15 mg tablet 1 tab PO Q6H PRN (Reason: pain) levothyroxine 75 mcg tablet 1 tab PO DAILY lisinopril 10 mg tablet 1 tab PO DAILY furosemide 20 mg tablet 1 tab PO QAM Discontinued clopidogrel 75 mg tablet 1 tab PO QAM aspirin 81 mg tablet,delayed release (DR/EC) 1 tab PO DAILY Discharge Orders: Discharge Order (Routine); Ordered 10/27/21 Ordered By: Nitin Ashton Diet: Low fat, low cholesterol Activity on Discharge: As tolerated Care Plan Goals: Iron deficiency anemia hold aspirin and Plavix call stomach specialist soon after discharge to arrange for outpatient endoscopy and to decide when can resume antiplatelet agent/return to check with worsening shortness of breath or chest pain Call arcade technician to address dual antiplatelet agents Patient is adamant to leave the hospital despite understanding that it is important to undergo workup to find out cause of anemia Complete abstinence from smoking/alcohol Take Prilosec and iron supplements Health Concerns: anemia/coronary artery disease Plan of Treatment: Outpatient follow-up with primary care physician, Cardiology and Gastroenterology call Dr. Loredo/Dr. Chinchilla office soon after discharge for an appointment Follow-up with cardiology Assessment: As per discharge summary
--- NOTE | 2021-10-27 13:31 | MHC.CM.PN ---
Patient left AMA before being seen by case management.
--- NOTE | 2021-10-27 13:38 | PC.NURSE ---
with assistance of office 365 consultant, patient signed ama papers and patient left at 1325 prior to being able to print out any paperwork dr almanza was putting in. pts relative left with patient in wheelchair, he is aware of consequences of discharging ama.
== END 2021-10-27 13:42 | disposition left against medical advice (07) | DRG 812 ==
LOC: HO.ED 23:55 → HO.EDOVER 10-27 00:30
PROVIDERS: Admitting Provider Hospitalist; Emergency Provider Emergency Medicine; PCP Nurse Practitioner Family; Visit Provider Hospitalist
DX: D50.9 Iron deficiency anemia, unspecified (principal); I25.10 Atherosclerotic heart disease of native coronary artery without angina pectoris; K21.9 Gastro-esophageal reflux disease without esophagitis; E78.5 Hyperlipidemia, unspecified; I25.2 Old myocardial infarction; E03.9 Hypothyroidism, unspecified; Z20.822 Contact with and (suspected) exposure to COVID-19; Z79.02 Long term (current) use of antithrombotics/antiplatelets; Z79.82 Long term (current) use of aspirin; Z79.890 Hormone replacement therapy; Z79.899 Other long term (current) drug therapy
CPT/HCPCS: 36415; 36430; 74176; 80048; 80053; 81003; 82272; 82607; 82728; 82746; 83540; 84484; 85025; 85045; 86850; 86900; 86901; 86923; 87635; 93005; 99285; P9016

== ENCOUNTER → 2021-11-17 11:47 | Outpatient (BNVA) | payer MEDICARE, MEDICAID, SELFPAY | PROVIDERS: PCP Internal Medicine; Referring Provider Internal Medicine; Visit Provider Nurse Practitioner | DX: D64.9 Anemia, unspecified (principal); Z12.11 Encounter for screening for malignant neoplasm of colon | CPT/HCPCS: 99202; 99212 ==

== ENCOUNTER 2021-11-22 08:47 | Day surgery (SDC) | payer MEDICARE, MEDICAID, SELFPAY ==
--- NOTE | 2021-11-21 10:50 | HO.ANESPROP2 ---
Documented by User: Mesha Blanco NP 11/21/21 11:53 HPI - Anesthesia Eval Consult details Narrative: 66yo M for Upper Endoscopy and [place]oscopy [place]20[place] [facility] [place] severe [place]. Transfused 3 units. Left AMA prior to endoscopic eval. Prior to admit, was planned to have cardiac cath d/t abnormal nuc stress test. Pt f/u'd with wiping cloth cutter post 10/2021 discharge. Hold off on cath until GI w/u for anemia completed. Holding ASA and plavix PMFSH Active Problems Active Problems: All Active Problems (Updated 11/14/21 @ 15:11 by TRENT Solomon) Anemia (Acute) H/O noncompliance with medical treatment, presenting hazards to health (Acute) Seborrheic dermatitis (Acute) Smoker (Acute) Right-sided heart failure (Acute) Diabetes (Acute) COPD (chronic obstructive pulmonary disease) (Acute) Coronary artery disease (Acute) Anemia (Acute) PAD (peripheral artery disease) (Acute) Past Medical History Medical History (Updated 11/14/21 @ 15:11 by TRENT Solomon) Coronary artery disease Hypertension Hypothyroidism NSTEMI (non-ST elevated myocardial infarction) Oropharyngeal cancer Family History Family History Father No problems noted. Mother No problems noted. Daughter No problems noted. Son No problems noted. Son No problems noted. Brother No problems noted. Sister No problems noted. Sister No problems noted. Son No problems noted. Surgical History Surgical History (Updated 11/17/21 @ 12:01 by Ankush Herrera [facility]) H/O heart surgery History of colonoscopy History of esophagogastroduodenoscopy (EGD) History of hernia repair Hx laparoscopic cholecystectomy Patient on combined chemotherapy and radiation Social History Social History Alcohol intake: current Patient Tobacco Use Status: Current everyday Tobacco user Tobacco use type: Cigarette Cigarettes Per Day: 12 Use of substances other than those prescribed or required for medical reasons: Yes Are you DNR?: No Advance Directives: No Advance Directives Information Provided: Yes Meds Allergies Allergy/AdvReac Type Severity Reaction Status Date / Time No Known Allergies Allergy Verified 11/17/21 11:56 [No Known Allergies*] Home Medications Medication Instructions Recorded Confirmed Last Taken Type atorvastatin 40 mg tablet 1 tab PO DAILY 10/27/21 10/27/21 Unknown History carvedilol 3.125 mg tablet 1 tab PO BID 10/27/21 10/27/21 Unknown History isosorbide mononitrate 30 mg 1 tab PO QAM 10/27/21 10/27/21 Unknown History tablet,extended release 24 hr levothyroxine 75 mcg tablet 1 tab PO DAILY 10/27/21 10/27/21 Unknown History lisinopril 10 mg tablet 1 tab PO DAILY 10/27/21 10/27/21 Unknown History oxycodone 15 mg tablet 1 tab PO Q6H PRN pain 10/27/21 10/27/21 Unknown History ipratropium 20 mcg-albuterol 100 inhalation 11/17/21 Unknown History mcg/actuation mist for inhalation (Combivent Respimat) nitroglycerin 0.4 mg sublingual 0 mg sublingual 11/17/21 Unknown History tablet Exam Exam Date and Time: November 21, 2021 1050 Pertinent Lab Results Pertinent Lab Results: Laboratory Tests 10/27/21 03:33 Sodium 137 Potassium 4.0 Chloride 108 Carbon Dioxide 24 BUN 8 L Creatinine 0.72 Narrative Narrative: EKG 10/2021 Vent. Rate : 062 BPM ? ? Atrial Rate : 062 BPM ?? P-R Int : 168 ms? QRS Dur : 122 ms ? ? QT Int : 410 ms ? ? ? P-R-T Axes : 056 -11 -80 degrees ?? QTc Int : 416 ms ? Normal sinus rhythm Left ventricular hypertrophy with QRS widening and repolarization abnormality ( [place] product ) Inferior infarct (cited on or before 30-JUL-2007) Abnormal ECG When compared with ECG of 16-MAY-2018 14:43, QT has shortened NM zeb perf SPECT rest & str 12/2020 Impression: ? 1.? Myocardial perfusion imaging study shows inferior and inferolateral transmural infarct. Lateral and anterolateral ischemia 2.? Gated LVEF is 30% with stress and 37% with stress 3. Transient ischemic dilatation present ? EKG is nondiagnostic for ischemia Assessment and Plan Assessment Anesthesia Assessment: Chart Reviewed Documented by User: Simón Miller MD 11/22/21 09:33 [facility] Past Medical History Medical History (Updated 11/14/21 @ 15:11 by TRENT Solomon) Coronary artery disease Hypertension Hypothyroidism NSTEMI (non-ST elevated myocardial infarction) Oropharyngeal cancer Family History Family History Father No problems noted. Mother No problems noted. Daughter No problems noted. Son No problems noted. Son No problems noted. Brother No problems noted. Sister No problems noted. Sister No problems noted. Son No problems noted. Family history of problems with anesthesia: No Surgical History Surgical History (Updated 11/17/21 @ 12:01 by Ankush Herrera [facility]) H/O heart surgery History of colonoscopy History of esophagogastroduodenoscopy (EGD) History of hernia repair Hx laparoscopic cholecystectomy Patient on combined chemotherapy and radiation History of Problems with Anesthesia: No Social History Social History Alcohol intake: current Patient Tobacco Use Status: Current everyday Tobacco user Tobacco use type: Cigarette Cigarettes Per Day: 12 Use of substances other than those prescribed or required for medical reasons: Yes Are you DNR?: No Advance Directives: No Advance Directives Information Provided: Yes Meds Allergies Allergy/AdvReac Type Severity Reaction Status Date / Time No Known Allergies Allergy Verified 11/17/21 11:56 [No Known Allergies*] Home Medications Medication Instructions Recorded Confirmed Last Taken Type atorvastatin 40 mg tablet 1 tab PO DAILY 10/27/21 10/27/21 Unknown History carvedilol 3.125 mg tablet 1 tab PO BID 10/27/21 10/27/21 Unknown History isosorbide mononitrate 30 mg 1 tab PO QAM 10/27/21 10/27/21 Unknown History tablet,extended release 24 hr levothyroxine 75 mcg tablet 1 tab PO DAILY 10/27/21 10/27/21 Unknown History lisinopril 10 mg tablet 1 tab PO DAILY 10/27/21 10/27/21 Unknown History oxycodone 15 mg tablet 1 tab PO Q6H PRN pain 10/27/21 10/27/21 Unknown History ipratropium 20 mcg-albuterol 100 inhalation 11/17/21 Unknown History mcg/actuation mist for inhalation (Combivent Respimat) nitroglycerin 0.4 mg sublingual 0 mg sublingual 11/17/21 Unknown History tablet Exam Airway Mallampati Class: II TM Dist: >3cm Neck ROM: Full Denture: Upper and Lower Heart: rrr Lungs: clear Assessment and Plan Final Anesthetic Review Family History of Problems with Anesthesia: No History of Problems with Anesthesia: No NPO: Yes ASA Class: IV Final Preanesthetic Review: No Changes in Pt Med Stat, Meds/Allgs Chart Reviewed and Anes Risks/Benef Reviewed Patient Risk: High Procedure Risk: Low Anesthetic Plan Anesthetic Plan: MAC: Disposition: Standard PACU
[2021-11-22 09:09] VITALS: BMI 22.1
--- NOTE | 2021-11-22 09:14 | P.HPSUR_ITS ---
Pre-Procedural Eval Section A Date of Service: 11/22/21 Section B Chief Complaint: Anemia Relevant Family History (Specify if Yes): No Relevant Social History: Tobacco Use Present Medications: see Short Stay Collaborative assessment Medical History: Significant History (Coronary artery disease Hypertension Hypothyroidism NSTEMI (non-ST elevated myocardial infarction) Oropharyngeal cancer) History of Previous Operations: Relevant previous surgery/procedure and date(s) (H/O heart surgery History of colonoscopy History of esophagogastroduodenoscopy (EGD) History of hernia repair Hx laparoscopic cholecystectomy Patient on combined chemotherapy and radiation) Allergies: Allergies Allergy/AdvReac Type Severity Reaction Status Date / Time No Known Allergies Allergy Verified 11/17/21 11:56 [No Known Allergies*] Review of Systems Sugical H&P ROS: Negative: Constitution, Cardiovascular, Respiratory, Neurological, Psychiatric, Hem-Onc, Allergic/Immunologic, Gastrointestinal, Genitourinary, Musculoskeletal, Integumentary, Endocrine and Eyes/Ears/Nos e/Throat Exam Surgical H&P Exam: Normal: HEENT, Normal: Heart, Normal: Lungs, Normal: Extremities, Normal: Abdomen, Normal: Skin and Normal: Neurological Plan Diagnosis/Plan: Unchanged I have reviewed the history and physical and performed a pertinent physical examination on my patient. No changes have occurred unless specified.
[2021-11-22 09:17] LABS: Hematocrit 37.9 % (42.0-52.0); Hemoglobin 11.4 g/dl (14.0-18.0); Mean Corpuscular HGB Conc 30.1 g/dl (31.0-36.0); Mean Corpuscular Hemoglobin 23.4 pg (27.0-33.0); Mean Corpuscular Volume 77.8 fL (80.0-98.0); Platelet Count 257 X10*3/uL (160-400); Red Blood Count 4.87 X10*6/uL (4.60-5.80); White Blood Count 6.1 X10*3/uL (4.8-10.8)
[2021-11-22 09:24] VITALS: BP 152/87; PULSE 59; RESP 16; TEMP 36.7; O2SAT 97
[2021-11-22] MEDS: Lactated Ringers 1,000 ML 100 ML IVCONT (09:42)
--- NOTE | 2021-11-22 09:47 | W.PM.OPN ---
Operative Note Operative Note Date of Service: 11/22/21 Narrative: Operative Information Procedure Description: EGD, Colonoscopy Indication: anemia Anesthesia: MAC FLEXIBLE TRANSORAL UPPER GASTROINTESTINAL ENDOSCOPY AND COLONOSCOPY PROCEDURE NOTE UPPER ENDOSCOPY Consent: Indications for the procedure and potential complications of bleeding, perforation, reaction to medications and missed diagnosis were discussed with the patient and informed consent was obtained. Instrument: Olympus GIF H 190 J mid size upper endoscope Monitoring: Vital signs and clinical assessment, continuous EKG monitoring, Pulse oximetry, Carbon Dioxide monitoring and blood pressure monitoring were done throughout the procedure. Procedure: The patient was placed in the left lateral decubitis position and pre-procedure medications were administered and a bite block was placed. The endoscope was inserted into the mouth and advanced under direct vision to the third part of duodenum. A careful inspection was made as the upper endoscope was withdrawn including a retroflexed examination of the proximal stomach; Findings and interventions are described below. Findings: Larynx:normal Esophagus: GE junction at 36 cm, diaphragm hiatus at 38 cm, consistent with 2 cm sliding hiatal hernia LA grade B erosive esophagitis noted with bogginess and induration in distal esophagus, bx taken from GEJ and random esophagus. There was also a non occlusive schatzki ring noted. Stomach: Normal mucosa. Biopsies were obtained. Grade 2 flap valve on retroflexed examination of the cardia. Duodenum: Patchy erythema and edema in bulb and descending part consistent with peptic injury, bx taken Intervention: Biopsies as noted above COLONOSCOPY Instrument: Olympus variable stiffness pediatric scope 190L Colonoscopy Monitoring: Vital signs and clinical assessment, continuous EKG monitoring, Pulse oximetry, Carbon Dioxide monitoring and blood pressure monitoring were done throughout the procedure. Colon withdrawal time was 10 minutes. Procedure: The patient was placed in the left lateral decubitis position and pre-procedure medications were administered. After a digital rectal examination of the ano-rectum, the video colonoscope was inserted into the rectum and advanced through the colon to the cecum/TI. The colonoscope was slowly withdrawn in a retrograde panoramic fashion and the colon mucosa was carefully examined including a retroflexed view of the rectum. Findings and interventions are described below. Procedure Difficulty:moderate due to looping Findings: Terminal Ileum-normal Cecum:normal Ascending Colon: several diverticula seen Transverse Colon - x 2 sessile polyps 10-12 mm removed with cold snare Descending Colon: diverticulosis Sigmoid Colon: severe diverticulosis with wide mouthed tics seen Rectum: Retroflexion with medium sized, slightly inflammed internal hemorrhoids, grade I Anorectum - normal Colon preparation: [place] Bowel Preparation Scale Right colon; 2 Transverse colon: 2 Left colon; 2 (0 = Unprepared colon segment with mucosa not seen due to solid stool that cannot be cleared. 1 = Portion of mucosa of the colon segment seen, but other areas of the colon segment not well seen due to staining, residual stool and/or opaque liquid. 2 = Minor amount of residual staining, small fragments of stool and/or opaque liquid, but mucosa of colon segment seen well. 3 = Entire mucosa of colon segment seen well with no residual staining, small fragments of stool or opaque liquid) Impression and Post Procedure Diagnosis: Endoscopy Findings: erosive esophagitis hiatal hernia schatzki ring duodenitis Colonoscopy Findings: polyps internal hemorrhoids diverticular disease Plan: Await Pathology results Repeat Colonoscopy in 5 years due to polyps or earlier if clinically indicated High fiber diet leaflet avoid straining at stool, epsom salts and sitz bath, anusol supps or cream suspect his anemia to be either from duodenitis and erosive esophagitis or hemorrhoids, recommend PPI, will send him pantoprazole 40 mg daily, ok to go for cardiac procedures and anti coagulation if needed once established on PPI for few weeks Above findings were reviewed with the patient and relevant handouts were provided if indicated.
[2021-11-22 10:30] VITALS: BP 130/79; PULSE 64; RESP 16; TEMP 36.4; O2SAT 98
[2021-11-22 10:45] VITALS: BP 143/77; PULSE 69; RESP 16; TEMP 36.4; O2SAT 96
[2021-11-22 11:00] VITALS: BP 142/76; PULSE 59; RESP 16; TEMP 36.4; O2SAT 97
== END 2021-11-22 11:02 | disposition home or self-care (01) ==
PROVIDERS: Nurse Practitioner; PCP Nurse Practitioner Family; Visit Provider Internal Medicine Gastroenterology
PROC: (CPT 45385; principal; 2021-11-22 10:10)
DX: D64.9 Anemia, unspecified (principal); D12.3 Benign neoplasm of transverse colon; K57.30 Diverticulosis of large intestine without perforation or abscess without bleeding; K64.0 First degree hemorrhoids; K22.2 Esophageal obstruction; K20.80 Other esophagitis without bleeding; K29.80 Duodenitis without bleeding; C10.9 Malignant neoplasm of oropharynx, unspecified; K44.9 Diaphragmatic hernia without obstruction or gangrene; I25.10 Atherosclerotic heart disease of native coronary artery without angina pectoris; I25.2 Old myocardial infarction; I10 Essential (primary) hypertension; E03.9 Hypothyroidism, unspecified; Z79.899 Other long term (current) drug therapy; Z90.49 Acquired absence of other specified parts of digestive tract; F17.210 Nicotine dependence, cigarettes, uncomplicated
CPT/HCPCS: 45385; 43239; 36415; 85027; 88305; 88342

== ENCOUNTER 2022-02-20 10:51 | Emergency (ER) | payer MEDICARE, MEDICAID, SELFPAY | END 2022-02-20 14:53 | disposition left against medical advice (07) | PROVIDERS: Emergency Provider Emergency Medicine; PCP Internal Medicine | DX: R31.9 Hematuria, unspecified (principal) ==

== ENCOUNTER 2022-03-24 08:52 | Outpatient (REF) | payer MEDICARE, MEDICAID, SELFPAY ==
[2022-03-24 16:50] LABS: Urine Cytology See Pathology rpt
== END 2022-03-24 08:53 | disposition home or self-care (01) ==
LOC: HO.LAB 08:52
PROVIDERS: PCP Family Medicine; Visit Provider Urology
DX: R31.0 Gross hematuria (principal); N40.0 Benign prostatic hyperplasia without lower urinary tract symptoms; R39.89 Other symptoms and signs involving the genitourinary system
CPT/HCPCS: 51798; 88112; 99202

== ENCOUNTER 2022-04-21 16:23 | Outpatient (REF) | payer OTHER, SELFPAY ==
--- NOTE | ~2022-04-21 | CT_ITS ---
EXAMINATION: CT CHEST WITHOUT CONTRAST CLINICAL INFORMATION: Aortic aneurysm without rupture COMPARISON: CT abdomen pelvis 10/27/2021 and chest x-ray 05/16/2018. Chest CT 04/23/2008 also reviewed. TECHNIQUE: Multidetector volumetric CT imaging of the chest was done. Axial MIP volume rendering provided. Sagittal and coronal reformatted images were obtained. This CT examination was performed using dose optimization techniques as appropriate, variously including the following: *Automated exposure control *Adjustment of mA and/or kV according to patient size (this includes techniques or standardized protocols for targeted exams where dose is matched to indication/reason for exam; i.e. extremities or head) *Use of iterative reconstruction technique DLP: 118 mGy-cm FINDINGS: The heart is normal in size. Coronary artery calcifications are present. There is no pericardial effusion. Normal caliber thoracic aorta. There are a few calcified mediastinal and hilar lymph nodes noted. A few mildly enlarged noncalcified mediastinal lymph nodes also appreciated. There is ill-defined soft tissue fullness in the right perihilar region, nonspecific but possibly noncalcified lymphadenopathy. Shotty bilateral axillary lymph nodes are demonstrated. The right upper lobe mainstem bronchus is completely decompressed, possibly due to external lymphadenopathy, however, an endobronchial lesion is not excluded. The right upper lobe however remains well aerated although there are scattered tree-in-bud and nodular airspace opacities centered within the right upper lobe. Overall mild to moderate emphysematous changes are present throughout the lungs. No pleural effusion or pneumothorax identified. Numerous calcified granulomas are again identified. Visualized portions of the upper abdomen demonstrate surgical changes consistent with prior cholecystectomy. Moderate diffuse degenerative changes of the spine. CT/CT chest wo IV con IMPRESSION: Ill-defined soft tissue fullness in the right perihilar region, nonspecific but possibly noncalcified lymphadenopathy. The right upper lobe mainstem bronchus is completely decompressed, possibly due to external lymphadenopathy, however, an endobronchial lesion is not excluded. The right upper lobe however remains well aerated although there are scattered tree-in-bud and nodular airspace opacities centered within the right upper lobe. Clinical correlation recommended. Bronchoscopy may be warranted. Fleischner guidelines were followed.
== END 2022-04-21 16:24 | disposition home or self-care (01) ==
LOC: HO.CT 16:23
PROVIDERS: PCP Family Medicine; Visit Provider Thoracic Surgery (Cardiothoracic Vascular Surgery)
DX: I71.9 Aortic aneurysm of unspecified site, without rupture (principal)
CPT/HCPCS: 71250

== ENCOUNTER 2022-05-03 15:18 | Outpatient (REF) | payer OTHER, SELFPAY ==
--- NOTE | ~2022-05-03 | US_ITS ---
EXAMINATION: US RETROPERITONEAL LIMITED (RENAL ONLY) CLINICAL INFORMATION: Benign prostatic hyperplasia, gross hematuria. COMPARISON: CT abdomen and pelvis without contrast 10/27/2021. Ultrasound abdomen complete 10/11/2014 and 11/04/2013. TECHNIQUE: Real-time imaging of the kidneys. FINDINGS: RIGHT KIDNEY: 10.4 x 3.8 x 5.1 cm (SAG x AP x TRV). The kidney is normal in size, contour, and echogenicity. Renal cortical thickness is normal. No focal parenchymal lesions or hydronephrosis. Lower pole 0.2 cm calculus. LEFT KIDNEY: 10.2 x 5.6 x 4.9 cm (SAG x AP x TRV). The kidney is normal in size, contour, and echogenicity. Renal cortical thickness is normal. No focal parenchymal lesions. There is mild hydronephrosis. There is a midpole 0.1 cm calculus. BLADDER: Right ureteral jet is demonstrated; left is not. The bladder is partially distended. No wall thickening. US/US renal BI IMPRESSION: Mild left hydronephrosis. No definite left ureteral jet seen. Bilateral tiny nonobstructing renal calculi.
== END 2022-05-03 15:19 | disposition home or self-care (01) ==
LOC: HO.US 15:18
PROVIDERS: Visit Provider Urology
DX: N40.0 Benign prostatic hyperplasia without lower urinary tract symptoms (principal); R31.0 Gross hematuria; R39.89 Other symptoms and signs involving the genitourinary system
CPT/HCPCS: 76775

== ENCOUNTER 2022-05-09 09:15 | Outpatient (REF) | payer OTHER, SELFPAY ==
[2022-05-09 11:11] LABS: PSA,Total (Free>4and<10) 2.48 ng/mL (0.00-4.00)
== END 2022-05-09 09:16 | disposition home or self-care (01) ==
LOC: HO.LAB 09:15
PROVIDERS: PCP Family Medicine; Visit Provider Urology
DX: N40.0 Benign prostatic hyperplasia without lower urinary tract symptoms (principal); R39.89 Other symptoms and signs involving the genitourinary system; Z12.5 Encounter for screening for malignant neoplasm of prostate
CPT/HCPCS: 36415; 84153

== ENCOUNTER 2022-06-01 13:31 | Emergency (ER) | payer OTHER, SELFPAY ==
--- NOTE | ~2022-06-01 | CT_ITS ---
EXAMINATION: CT CHEST WITH CONTRAST CLINICAL INFORMATION: New upper lobe infiltrate. Rule out mass. COMPARISON: Previous chest x-ray from earlier the same day and chest CT 04/21/2022 TECHNIQUE: Multidetector volumetric CT imaging of the chest was obtained after the administration of 85 mL of Omnipaque 350 intravenous contrast without immediate adverse reactions. Axial MIP volume rendering provided. Sagittal and coronal reformatted images were obtained. This CT examination was performed using dose optimization techniques as appropriate, variously including the following: *Automated exposure control *Adjustment of mA and/or kV according to patient size (this includes techniques or standardized protocols for targeted exams where dose is matched to indication/reason for exam; i.e. extremities or head) *Use of iterative reconstruction technique DLP: 201 mGy-cm FINDINGS: CUSTOMER SUPPORT SPECIALIST: LUNGS: There is new dense right upper lobe consolidation with air bronchograms suggestive of pneumonia. There is prominent soft tissue seen in the central right upper lobe surrounding the right upper lobe bronchus, the right upper lobe bronchus is narrowed and possible postobstructive pneumonia and central obstructing lesion should be considered. There is some new volume loss to the right upper lobe and right hemithorax. The lungs are otherwise clear. There is mild emphysema. MEDIASTINUM: There are enlarged mediastinal lymph nodes. These appear increased from previous exam. There are enlarged anterior mediastinal, AP window, right paratracheal and subcarinal lymph nodes. Again there is prominent low-attenuation soft tissue seen in the right hilum and surrounding the right upper lobe bronchus and central obstructing mass should be excluded. No left hilar lymphadenopathy. Normal heart size. Moderate to severe coronary artery calcification. No pericardial effusion. PLEURA: New small right pleural effusion. No left pleural effusion. AXILLA: No lymphadenopathy. UPPER ABDOMEN: See abdominal and pelvic CT report from the same day OSSEOUS STRUCTURES: Degenerative changes of the spine CT/CT chest w IV con IMPRESSION: New right upper lobe airspace disease suggestive of pneumonia and increasing right upper lobe volume loss. Abnormal soft tissue surrounding the right upper lobe bronchus and the right upper lobe bronchus is collapsed or narrowed.Central obstructing right upper lobe lesion and postobstructive pneumonia should be considered and imaging follow-up following treatment or bronchoscopy recommended. Increasing mediastinal lymphadenopathy. New small right pleural effusion. Fleischner guidelines were followed.
--- NOTE | ~2022-06-01 | CT_ITS ---
EXAMINATION: CT ABDOMEN AND PELVIS WITH CONTRAST CLINICAL INFORMATION: Abdominal pain COMPARISON: Previous CT of the abdomen and pelvis October 2021 and renal ultrasound April 2022 TECHNIQUE: Multidetector volumetric images were obtained from the superior aspect of the liver through the pubic symphysis following administration 85 mL of Omnipaque 350 intravenous contrast. Sagittal and coronal reformatted images were obtained on the technologist's workstation. Oral contrast: Yes This CT examination was performed using dose optimization techniques as appropriate, variously including the following: *Automated exposure control *Adjustment of mA and/or kV according to patient size (this includes techniques or standardized protocols for targeted exams where dose is matched to indication/reason for exam; i.e. extremities or head) *Use of iterative reconstruction technique DLP: 347 mGy-cm FINDINGS: LUNG BASES: The CT chest CT from the same day visualized lung bases are unremarkable. LIVER, GALLBLADDER, AND BILIARY TREE: The liver is normal in size, shape, and attenuation. No focal hepatic lesion or biliary ductal dilatation is present. The gallbladder has been removed. PANCREAS: Unremarkable. SPLEEN: Unremarkable. ADRENAL GLANDS: Unremarkable. KIDNEYS AND URETERS: The kidneys are normal in size, shape, and attenuation. No hydronephrosis, hydroureter, or calculi seen. No perinephric stranding. BLADDER: The prostate gland is enlarged and protrudes into the base of the bladder. The bladder is otherwise unremarkable. GASTROINTESTINAL TRACT: There is abnormal wall thickening of mid small bowel in the left side of the abdomen. There is some stool the colon questionable for mild constipation. The colon is air-filled. No dilated loops of bowel to suggest obstruction. The appendix is normal. No ascites or free air. ABDOMINAL WALL: No significant hernia is appreciated. LYMPH NODES: Normal. VASCULAR: There is severe atherosclerotic disease. No aneurysm. PELVIC VISCERA: The prostate gland is enlarged and protrudes into the base of the bladder. OSSEOUS STRUCTURES: Degenerative changes of the spine and hip joints CT/CT abdomen pelvis w IV con IMPRESSION: Abnormal wall thickening of the mid small bowel in the left abdomen suggestive of enteritis. Infectious, inflammatory and ischemic enteritis should be considered. Question mild constipation. Severe atherosclerotic disease. Fleischner guidelines were followed.
--- NOTE | ~2022-06-01 | XR_ITS ---
EXAMINATION: XR CHEST CLINICAL INFORMATION: Chest pain COMPARISON: Chest x-ray 05/16/2018, chest CT 04/21/2022 TECHNIQUE: Frontal view of the chest was obtained. FINDINGS: Mild volume loss in right hemithorax with mild right tracheal shift and confluent airspace opacity in the right mid and upper lung. Slight fullness in the right hilar region. Left lung is clear. No pleural effusion. No pneumothorax. Normal cardiomediastinal silhouette. No evidence of pulmonary edema. No acute osseous injury identified. XR/XR chest 1V IMPRESSION: Mild volume loss in the right hemithorax with confluent airspace opacity in the right mid and upper lung and slight fullness in the right hilar region. Findings concerning for postobstructive atelectasis or pneumonia. On the recent chest CT there was occlusion/opacification of right upper lobe bronchi. Cannot exclude underlying endobronchial lesion/mass versus mucous plugging. Suggest pulmonary consultation.
--- NOTE | 2022-06-01 13:46 | ECG_ITS ---
Test Reason : chest pain Blood Pressure : / mmHG Vent. Rate : 061 BPM Atrial Rate : 061 BPM P-R Int : 168 ms QRS Dur : 116 ms QT Int : 394 ms P-R-T Axes : 055 -26 256 degrees QTc Int : 396 ms Normal sinus rhythm Inferior infarct , age undetermined T wave abnormality, consider lateral ischemia Abnormal ECG No significant changes when compared with the previous EKG of 26 october 2021 Referred By: Generic ED Physician Electronically Signed By:CARLOTA INIGUEZ
[2022-06-01 13:48] VITALS: BP 118/74; BP 131/75; PULSE 63; RESP 16; TEMP 36.8; O2SAT 96; O2SAT 98; BMI 21.8
[2022-06-01 14:33] LABS: MANUAL DIFF FLAG NO
[2022-06-01 14:34] LABS: Basophils Absolute Auto 0.1 X10*3/uL (0.0-0.2); Basophils Percent Auto 0.8 % (0-2); Eosinophils Absolute Auto 0.2 X10*3/uL (0.0-0.4); Eosinophils Percent Auto 2.2 % (0-4); Hematocrit 35.8 % (42.0-52.0); Imm Gran Abs Auto 0.04 X10*3/uL (0.00-0.03); Imm Gran Pct Auto 0.5 % (0.0-0.4); Lymphocytes Absolute Auto 1.6 X10*3/uL (1.2-4.9); Lymphocytes Percent Auto 20.8 % (20-40); Mean Corpuscular HGB Conc 33.5 g/dl (31.0-36.0); Mean Corpuscular Hemoglobin 30.7 pg (27.0-33.0); Mean Corpuscular Volume 91.6 fL (80.0-98.0); Mean Platelet Volume 9.9 fL (9.4-12.4); Neutrophils Percent Auto 63.7 % (45-73); Platelet Count 265 X10*3/uL (160-400); Red Blood Count 3.91 X10*6/uL (4.60-5.80); Red Cell Distribution Width 13.4 % (11.0-16.0); White Blood Count 7.9 X10*3/uL (4.8-10.8)
[2022-06-01 14:51] LABS: Anion Gap 9 (12-20); Blood Urea Nitrogen 11 mg/dL (9-16); Calcium 9.8 mg/dL (8.4-10.2); Carbon Dioxide 30 mmol/L (22-29); Chloride 102 mmol/L (96-108); Creatinine Clr Calc Pharmacy 69.5; Estimated Glomerular Filt Rate > 60; Glucose Random 82 mg/dL (60-115); Potassium 4.5 mmol/L (3.3-5.1); Sodium 136 mmol/L (135-145)
[2022-06-01 14:51] LABS: IDNOW Serial# 9DB6401D
[2022-06-01 14:52] LABS: COVID-19 Test Negative (Negative)
[2022-06-01 15:01] LABS: Troponin-I High Sensitivity 14.6 ng/L (<3.5-35.0)
--- NOTE | 2022-06-01 16:28 | ED.CHESTPAIN ---
HPI - Chest Pain General Chief Complaint: Chest Pain Stated Complaint: CP, TOOK NTG Time Seen by Provider: 06/01/22 16:26 Source: patient and family ( ) Mode of arrival: EMS Limitations: language barrier ( Latvian speaking, political geographer used) History of Present Illness HPI narrative: 67-year-old male who presents emergency department for evaluation intermittent chest pain x2 days. Patient states that since yesterday he has had a thumping/palpitation like sensation in his chest, worse on the right side than on the left. He states that the episodes are brief but frequent. He took nitroglycerin 1 tablet yesterday 1 tablet today with no improvement of his symptoms. He states he has had a decreased appetite for years but it has gotten worse over the past 24 hours. Denies any weight loss. He denied fever, chills, rhinorrhea, sore throat. He states he has a chronic cough secondary to smoking but is gotten worse over the past several days. Patient states that he does have dyspnea on exertion which is chronic but he is able to walk up 2 flights of stairs. He denied nausea, vomiting, diarrhea. Patient states that he has been having intermittent hematuria but he believes that this is resolved. Patient does have a history of throat cancer 6 years prior which was treated with radiation chemotherapy also had a resection of the left side of his tongue. States that he does see an oncologist at [facility]. Related Data Home Medications Medication Instructions Recorded Confirmed atorvastatin 40 mg tablet 1 tab PO DAILY 10/27/21 03/24/22 carvedilol 3.125 mg tablet 1 tab PO BID 10/27/21 03/24/22 isosorbide mononitrate 30 mg 1 tab PO QAM 10/27/21 03/24/22 tablet,extended release 24 hr levothyroxine 75 mcg tablet 1 tab PO DAILY 10/27/21 03/24/22 lisinopril 10 mg tablet 1 tab PO DAILY 10/27/21 03/24/22 oxycodone 15 mg tablet 1 tab PO Q6H PRN pain 10/27/21 03/24/22 ipratropium 20 mcg-albuterol 100 inhalation 11/17/21 03/24/22 mcg/actuation mist for inhalation (Combivent Respimat) nitroglycerin 0.4 mg sublingual 0 mg sublingual 11/17/21 03/24/22 tablet aspirin 81 mg tablet,delayed 81 mg PO DAILY 03/24/22 03/24/22 release (Adult Low Dose Aspirin) furosemide 20 mg tablet 20 mg PO DAILY 03/24/22 03/24/22 Previous Rx's Medication Instructions Recorded peg 3350-electrolytes 236 240 ml PO Q10M 1 day #4,000 mL 11/17/21 gram-22.74 gram-6.74 gram-5.86 gram solution (Golytely) pantoprazole 40 mg tablet,delayed 40 mg PO DAILY #60 tabs 11/22/21 release amoxicillin 250 mg/5 mL oral 1,000 mg (20 mL) PO TID 7 days 06/01/22 suspension #420 mL doxycycline hyclate 100 mg tablet 100 mg PO Q12H 7 days #14 tabs 06/01/22 Allergies Allergy/AdvReac Type Severity Reaction Status Date / Time No Known Allergies Allergy Verified 06/01/22 13:52 [No Known Allergies*] Review of Systems Review of Systems: Yes all other systems are reviewed and are negative [facility] Past Medical History [facility] Narrative: past medical history: Reviewed below past surgical history: Reviewed below. Social history: The patient smokes 12 cigarettes per day. He denies alcohol use. He smokes marijuana 2 to 3 times a day. Medical History Coronary artery disease Hypertension Hypothyroidism NSTEMI (non-ST elevated myocardial infarction) Oropharyngeal cancer Surgical History H/O heart surgery History of colonoscopy History of esophagogastroduodenoscopy (EGD) History of hernia repair Hx laparoscopic cholecystectomy Patient on combined chemotherapy and radiation Family History Family History Father No problems noted. Mother No problems noted. Daughter No problems noted. Son No problems noted. Son No problems noted. Brother No problems noted. Sister No problems noted. Sister No problems noted. Son No problems noted. Social History Social History Alcohol intake: current Patient Tobacco Use Status: Current everyday Tobacco user Tobacco use type: Cigarette Cigarettes Per Day: 12 Advance Directives: No Advance Directives Information Provided: Yes Physical Exam Vital Signs: Vital Signs: Last Vital Signs Temp 98.3 F 06/01/22 13:48 Pulse 65 06/01/22 18:14 Resp 12 06/01/22 18:14 BP 152/86 H 06/01/22 18:14 Pulse Ox 97 06/01/22 18:14 O2 Del Method 06/01/22 18:14 BMI result Body Mass Index 21.8 Const: Other: Awake, alert, male patient, does not appear to be in distress HEENT: Head: Yes normal to inspection, Yes normocephalic and Yes atraumatic Ears: external ears normal General nose exam: Normal external nose present Face and sinus: Yes normal facial exam Mouth: other ( resection of the patient's left posterior tongue) Throat: Yes posterior oropharynx normal Eyes: General: appearance normal, both eyes and all related structures Pupils: Equal, round and reactive pupils present Neck: Neck: Yes normal visual inspection, Yes no lymphadenopathy, Yes trachea midline and Yes supple Chest: Chest palpation & inspection: normal inspection of the chest and normal palpation of entire chest wall Resp: Effort & Inspection: normal respiratory effort and able to speak in complete sentences Auscultation: clear to auscultation bilaterally Cardio: Rate: regular rate Rhythm: regular rhythm Heart sounds: S1 normal heart sound present, S2 normal heart sound present and no murmurs GI: Inspection: Yes normal to inspection Palpation (GI): Soft to palpation, nontender and no guarding Auscultation: normal bowel sounds : General: Yes no CVA tenderness Back/Spine/Pelvis: Back: no CVA tenderness Skin: General skin exam: no rashes or lesions noted Neuro: Cranial nerves: Yes CN's II-XII intact bilaterally and Yes Equal, round and reactive pupils present Cognition (Neuro): normal cognition Motor exam (neuro): 5/5 motor strength present throughout Extrem: General: Yes normal to inspection Psych: Appearance: grossly normal Speech and movement: Normal speech and movement present Affect: normal affect Medications Administered Discontinued Medications Generic Name Dose Route Start Last Admin Trade Name Freq PRN Reason Stop Dose Admin Iohexol 100 ml 06/01/22 18:46 06/01/22 18:46 Iohexol 350 Mg/Ml 100 Ml Infus..Btl IV 06/01/22 18:47 85 ml ONCE ONE Administration Medical Decision Making Medical Decision Making [facility] Narrative: 67-year-old male who presents emergency department for evaluation of intermittent chest pain / palpitations x2 days. Patient also has had a cough which states is chronic and chronic dyspnea on exertion. Patient's physical examination was unremarkable. Laboratory evaluation revealed mild anemia with an H&H of 12 and 35.8. Elevated bicarb of 30. Patient's high sensitive troponin I was detectable but not elevated at 14.6. His 3 hour repeat was unchanged at 14.9 suggested the patient did not have myocardial injury is the cause of his chest pain. BMP was normal. Urinalysis was negative. COVID-19 was negative. Chest x-ray did reveal right upper lobe infiltrate which looked like a postobstructive pneumonia therefore CT scan of the chest abdomen pelvis was obtained and this is also consistent with a postobstructive pneumonia. This was a concerning finding and could be related to recurrence of his esophageal cancer or a new malignancy. The patient does not want to be hospitalized and wants to follow-up with his primary care doctor. His pneumonia was treated with amoxicillin liquid 1000 mg 3 times a day for 7 days and doxycycline 100 mg twice a day for 7 days. Patient was given printed and verbal instructions and discharged home. Differential Diagnosis Differential Diagnoses: The differential diagnosis associated with the presentation includes Lab Data [facility] Lab Attestation statement: I reviewed the patient's lab results. please see the [facility] for my discussion 06/01/22 14:29 06/01/22 14:29 Labs: Lab Results 06/01/22 06/01/22 06/01/22 Range/Units 14:27 14:29 14:29 WBC 7.9 (4.8-10.8) X10*3/uL RBC 3.91 L (4.60-5.80) X10*6/uL Hgb 12.0 L (14.0-18.0) g/dl Hct 35.8 L (42.0-52.0) % MCV 91.6 (80.0-98.0) fL MCH 30.7 (27.0-33.0) pg MCHC 33.5 (31.0-36.0) g/dl RDW 13.4 (11.0-16.0) % Plt Count 265 (160-400) X10*3/uL MPV 9.9 (9.4-12.4) fL Immature Gran % (Auto) 0.5 H (0.0-0.4) % Neut % (Auto) 63.7 (45-73) % Lymph % (Auto) 20.8 (20-40) % [place] % (Auto) 12.0 H (2-11) % Eos % (Auto) 2.2 (0-4) % Baso % (Auto) 0.8 (0-2) % Lymph # (Auto) 1.6 (1.2-4.9) X10*3/uL [place] # (Auto) 1.0 (0.1-1.2) X10*3/uL Eos # (Auto) 0.2 (0.0-0.4) X10*3/uL Baso # (Auto) 0.1 (0.0-0.2) X10*3/uL Abs Immat Gran (auto) 0.04 H (0.00-0.03) X10*3/uL Absolute Neuts (auto) 5.0 (2.0-8.3) x10*3/uL Absolute Nucleated RBC 0.000 (0.0-0.012) X10*3/uL Nucleated RBC % (auto) 0.0 (0.0-0.2) /100WBC Sodium 136 (135-145) mmol/L Potassium 4.5 (3.3-5.1) mmol/L Chloride 102 (96-108) mmol/L Carbon Dioxide 30 H (22-29) mmol/L Anion Gap 9 L (12-20) BUN 11 (9-16) mg/dL Creatinine 0.84 (0.5-1.4) mg/dL Estim Creat Clear Calc 69.5 Estimated GFR > 60 Random Glucose 82 (60-115) mg/dL Lactic Acid (0.5-2.0) mmol/L Calcium 9.8 D (8.4-10.2) mg/dL Troponin I High Sens (<3.5-35.0) ng/L Urine Color Urine Appearance Urine pH (5.0-9.0) Ur Specific [place] (1.005-1.025) Urine Protein (Neg-Trace) mg/dL Urine Glucose (UA) (Negative) mg/dL Urine Ketones (Negative) mg/dL Urine Blood (Negative) Urine Nitrite (Negative) Ur Leukocyte Esterase (Negative) COVID-19 (TERI) Negative (Negative) COVID-19 Clin Com See Note 06/01/22 06/01/22 06/01/22 Range/Units 14:29 17:29 17:29 WBC (4.8-10.8) X10*3/uL RBC (4.60-5.80) X10*6/uL Hgb (14.0-18.0) g/dl Hct (42.0-52.0) % MCV (80.0-98.0) fL MCH (27.0-33.0) pg MCHC (31.0-36.0) g/dl RDW (11.0-16.0) % Plt Count (160-400) X10*3/uL MPV (9.4-12.4) fL Immature Gran % (Auto) (0.0-0.4) % Neut % (Auto) (45-73) % Lymph % (Auto) (20-40) % [place] % (Auto) (2-11) % Eos % (Auto) (0-4) % Baso % (Auto) (0-2) % Lymph # (Auto) (1.2-4.9) X10*3/uL [place] # (Auto) (0.1-1.2) X10*3/uL Eos # (Auto) (0.0-0.4) X10*3/uL Baso # (Auto) (0.0-0.2) X10*3/uL Abs Immat Gran (auto) (0.00-0.03) X10*3/uL Absolute Neuts (auto) (2.0-8.3) x10*3/uL Absolute Nucleated RBC (0.0-0.012) X10*3/uL Nucleated RBC % (auto) (0.0-0.2) /100WBC Sodium (135-145) mmol/L Potassium (3.3-5.1) mmol/L Chloride (96-108) mmol/L Carbon Dioxide (22-29) mmol/L Anion Gap (12-20) BUN (9-16) mg/dL Creatinine (0.5-1.4) mg/dL Estim Creat Clear Calc Estimated GFR Random Glucose (60-115) mg/dL Lactic Acid 1.1 (0.5-2.0) mmol/L Calcium (8.4-10.2) mg/dL Troponin I High Sens 14.6 (<3.5-35.0) ng/L Urine Color Yellow Urine Appearance Clear Urine pH 7.0 (5.0-9.0) Ur Specific [place] 1.010 (1.005-1.025) Urine Protein Negative (Neg-Trace) mg/dL Urine Glucose (UA) Negative (Negative) mg/dL Urine Ketones Negative (Negative) mg/dL Urine Blood Negative (Negative) Urine Nitrite Negative (Negative) Ur Leukocyte Esterase Negative (Negative) COVID-19 (TERI) (Negative) COVID-19 Clin Com 06/01/22 Range/Units 17:29 WBC (4.8-10.8) X10*3/uL RBC (4.60-5.80) X10*6/uL Hgb (14.0-18.0) g/dl Hct (42.0-52.0) % MCV (80.0-98.0) fL MCH (27.0-33.0) pg MCHC (31.0-36.0) g/dl RDW (11.0-16.0) % Plt Count (160-400) X10*3/uL MPV (9.4-12.4) fL Immature Gran % (Auto) (0.0-0.4) % Neut % (Auto) (45-73) % Lymph % (Auto) (20-40) % [place] % (Auto) (2-11) % Eos % (Auto) (0-4) % Baso % (Auto) (0-2) % Lymph # (Auto) (1.2-4.9) X10*3/uL [place] # (Auto) (0.1-1.2) X10*3/uL Eos # (Auto) (0.0-0.4) X10*3/uL Baso # (Auto) (0.0-0.2) X10*3/uL Abs Immat Gran (auto) (0.00-0.03) X10*3/uL Absolute Neuts (auto) (2.0-8.3) x10*3/uL Absolute Nucleated RBC (0.0-0.012) X10*3/uL Nucleated RBC % (auto) (0.0-0.2) /100WBC Sodium (135-145) mmol/L Potassium (3.3-5.1) mmol/L Chloride (96-108) mmol/L Carbon Dioxide (22-29) mmol/L Anion Gap (12-20) BUN (9-16) mg/dL Creatinine (0.5-1.4) mg/dL Estim Creat Clear Calc Estimated GFR Random Glucose (60-115) mg/dL Lactic Acid (0.5-2.0) mmol/L Calcium (8.4-10.2) mg/dL Troponin I High Sens 14.9 (<3.5-35.0) ng/L Urine Color Urine Appearance Urine pH (5.0-9.0) Ur Specific [place] (1.005-1.025) Urine Protein (Neg-Trace) mg/dL Urine Glucose (UA) (Negative) mg/dL Urine Ketones (Negative) mg/dL Urine Blood (Negative) Urine Nitrite (Negative) Ur Leukocyte Esterase (Negative) COVID-19 (TERI) (Negative) COVID-19 Clin Com Independent Interpretation I performed an independent interpretation of an: EKG Interpretation: my independent interpretation the patient's 12 EKG is as follows normal sinus rhythm rate of 61, normal NC interval, prolonged QRS duration of 160 milliseconds, normal QTC interval. Patient has an inverted T-waves in 3, AVF, V4 through V6, no ST segment elevation, ST segment depression. compared to EKG dated 10/26/2021 there is no significant change. Radiology Impression Discussion of test interpretation with radiology: I have reviewed the radiologist's reading. Radiologist Impression: EXAMINATION: XR CHEST CLINICAL INFORMATION: Chest pain COMPARISON: Chest x-ray 05/16/2018, chest CT 04/21/2022 TECHNIQUE: Frontal view of the chest was obtained. FINDINGS: Mild volume loss in right hemithorax with mild right tracheal shift and confluent airspace opacity in the right mid and upper lung. Slight fullness in the right hilar region. Left lung is clear. No pleural effusion. No pneumothorax. Normal cardiomediastinal silhouette. No evidence of pulmonary edema. No acute osseous injury identified. XR/XR chest 1V IMPRESSION: Mild volume loss in the right hemithorax with confluent airspace opacity in the right mid and upper lung and slight fullness in the right hilar region. Findings concerning for postobstructive atelectasis or pneumonia. On the recent chest CT there was occlusion/opacification of right upper lobe bronchi. Cannot exclude underlying endobronchial lesion/mass versus mucous plugging. Suggest pulmonary consultation. Dictated By:Rene MontejoSigned By:<Electronically signed by Rene Montejo in OV>06/01/22 1525 Discharge Plan Discharge Clinical Impression: Chest pain, Postobstructive pneumonia Patient Disposition: Home, Self-Care Instructions: Pneumonia (ED) Additional Instructions: Your chest x-ray and CT scan are concerning for a pneumonia of the right upper lobe of your lung. This is most likely caused by a blockage of your breathing tubes and this may be due to recurrence of your esophageal cancer or you may now have a new cancer of your lungs. It is important that you follow-up with your oncologist to further evaluate these findings, in to see if you need any other treatment. I am treating you pneumonia with 2 antibiotics Amoxicillin 250 mg per 5 mL, 20 mL 3 times a day for 7 days. Doxycycline 100 mg, take 1 pill every 12 hours for 7 days. Follow-up with your doctor in 2 days. Please return to the emergency department if your symptoms get worse or if you develop any symptoms that are concerning to you. Prescriptions: New amoxicillin 250 mg/5 mL suspension for reconstitution 1,000 mg PO TID 7 Days Qty: 420 0RF doxycycline hyclate 100 mg tablet 100 mg PO Q12H 7 Days Qty: 14 0RF No Action atorvastatin 40 mg tablet 1 tab PO DAILY isosorbide mononitrate 30 mg tablet extended release 24 hr 1 tab PO QAM carvedilol 3.125 mg tablet 1 tab PO BID oxycodone 15 mg tablet 1 tab PO Q6H PRN (Reason: pain) levothyroxine 75 mcg tablet 1 tab PO DAILY lisinopril 10 mg tablet 1 tab PO DAILY pantoprazole 40 mg tablet,delayed release (DR/EC) 40 mg PO DAILY Qty: 60 2RF Combivent Respimat 20-100 mcg/actuation mist inhalation nitroglycerin 0.4 mg tablet, sublingual 0 mg sublingual peg 3350-electrolytes [Golytely] 236-22.74-6.74 -5.86 gram recon soln 240 ml PO Q10M 1 Days Qty: 4000 0RF Rx Instructions: until fecal effluent is clear; do not exceed a total volume of 2,000 mL furosemide 20 mg tablet 20 mg PO DAILY aspirin [Adult Low Dose Aspirin] 81 mg tablet,delayed release (DR/EC) 81 mg PO DAILY Interventions: ED Discharge Assessment Last Done: 06/01/22 20:20 Discharge Date/Time: 06/01/22 20:20
[2022-06-01 17:44] LABS: Appearance Urine Clear; Color Urine Yellow; Glucose Urine UA Negative (Negative); Leukocyte Esterase Urine Negative (Negative); Nitrite Urine Negative (Negative); Urine Blood Negative (Negative); Urine Ketones Negative (Negative); Urine Protein Negative (Neg-Trace)
[2022-06-01 17:48] LABS: Lactic Acid 1.1 mmol/L (0.5-2.0)
[2022-06-01 18:05] LABS: Troponin-I High Sensitivity 14.9 ng/L (<3.5-35.0)
[2022-06-01 18:14] VITALS: BP 152/86; PULSE 65; PULSE 66; RESP 12; O2SAT 97
[2022-06-01] MEDS: iohexoL 350 MG/ML 100 ML INFUS..BTL IV (18:46)
--- NOTE | 2022-06-01 20:15 | PC.NURSE ---
The pt informed staff that he wisheed to sign out AMA. my understanding is that this pt spoke with Dr Ramirez about this and Dr Ramirez placed discharge papers for the pt and ordered PO abx. I was asked to assist with this DC. I obtained the meds and walked to the patients room but he was no longer in the room. The pt was noted standing by the nurses statio. I spoke with the pt and requested that we walk back to his room quickly so I could scan him and the meds that were ordered for him. He refused, threw his hands in the air and then in my face and then walked out of the department quickly. He did not take the meds with him. He ambulated out independently and with steady gait,.
== END 2022-06-01 20:20 | disposition home or self-care (01) ==
PROVIDERS: Emergency Provider Emergency Medicine Emergency Medical Services; PCP Internal Medicine
DX: R07.9 Chest pain, unspecified (principal); Z20.822 Contact with and (suspected) exposure to COVID-19; I10 Essential (primary) hypertension; F17.210 Nicotine dependence, cigarettes, uncomplicated; Z85.819 Personal history of malignant neoplasm of unspecified site of lip, oral cavity, and pharynx; Z79.02 Long term (current) use of antithrombotics/antiplatelets; Z79.899 Other long term (current) drug therapy; Z79.82 Long term (current) use of aspirin
CPT/HCPCS: 36415; 71045; 71260; 74177; 80048; 81003; 83605; 84484; 85025; 87040; 87635; 93005; 99284; Q9967